=== PATIENT | male | born 1945 | race Caucasian/White ===

== ENCOUNTER 2018-04-01 17:04 | Emergency (ER) | payer OTHER ==
--- OUTSIDE RECORDS SUMMARY | 2018-04-01 17:05 | XMS REPORT | Clinical Summary ---
:1945 Author Organization [facility] Address [address] [place] [address] Care Team Providers Name Role Phone Asked, No Pcp Primary Care Provider Unavailable Allergies No Known Allergies Current Medications Prescription Sig. Disp. Refills Start Date End Date Status zolpidem (AMBIEN) 10 Take 10 mg by Active mg tablet mouth nightly as needed for sleep. aspirin (ECOTRIN) 81 Take 81 mg by Active MG enteric coated mouth daily. tablet atorvastatin Take 40 mg by Active (LIPITOR) 40 MG mouth daily. tablet lisinopril Take 40 mg by Active (PRINIVIL,ZESTRIL) 40 mouth nightly. mg tablet clopidogrel (PLAVIX) Take 1 tablet 90 tablet 3 12/30/2016 12/30/2017 75 mg (75 mg total) by tabletIndications: mouth daily. Right-sided carotid artery disease Active Problems Problem Noted Date Carotid artery stenosis, symptomatic 11/17/2016 Social History Tobacco Use Types Packs/Day Years Used Date Never Assessed Sex Assigned at Date Recorded Not on file Last Filed Vital Signs Not on file Plan of Treatment Health Maintenance Due Date Last Done Comments COLON CANCER SCREENING 1997 SHINGRIX VACCINE (#1) 1997 ZOSTER VACCINE 2007 PNEUMOCOCCAL POLYSACCHARIDE VACCINE AGE 65 AND OVER 2012 PNEUMOCOCCAL-13 2012 INFLUENZA VACCINE 06/16/2018 Implants Implanted Type Area Subway Guard Device Expiration Model / Identifier Date Serial / Lot Patch Biosurg Selnt Fibrin Absrbl 9.5x4.8cm Tachosil - [id number] Surgical N/A : WHITE 02/13/2017 [id number] / Implanted: Qty: 1 on 11/19/2016 by Rashid Fritz MD Implants; N/A BIOSCIENCE / Expanders; Extenders; Surgical Wires Kit Shunt Crtd Artery Rdopq Line 6in Strl Hospers - [id number] Surgical N/A: COVIDIEN BILLIE 06/23/2021 [id number] / Implanted: 11/19/2016 (Quantity not on file) Implants; N/A HEALTHCARE / Expanders; [id number] Extenders; Surgical Wires Patch Vasclr Perph 0.8x8cm Vascu-Guard - [id number] Vascular N/A: WHITE 04/08/2021 [id number] / Implanted: 11/19/2016 (Quantity not on file) Graft N/A BIOSCIENCE / [id number] Results Not on fileafter 03/31/2017 Insurance Payer Benefit Plan / Group Subscriber ID Type Phone Address MEDICARE MEDICARE PART A AND B xxxxxxxxxx Medicare [place], [place] [phone] [place] [id number]
[2018-04-01 17:29] LABS: Absolute Lymphocytes (CBC) 1.9 K/uL (0.7-4.9); Absolute Monocytes 0.6 K/uL (0.1-1.3); Absolute Neutrophil 4.9 K/uL (1.8-8.0); Basophils % 1.3 % (0-1.3); Hematocrit 45.1 % (39.6-49.0); Lymphocytes % 24.3 % (15.3-44.8); MCH 34.7 pg (27.0-35.0); MCV 101.9 fL (80-100); MPV 9.6 fL (7.6-11.3); Monocytes % 7.8 % (3.3-12.3); RBC Red Blood Cell Count 4.42 M/uL (4.33-5.43)
[2018-04-01 17:36] LABS: Potassium 4.2 mEq/L (3.6-5.0)
--- NOTE | 2018-04-01 18:48 | RAD REPORT ---
EXAM DESCRIPTION: CT - Head C Spine Cap W Con - 04/01/2018 6:39 pm COMPARISON: None. TECHNIQUE: Axial [address] head images were obtained. Axial [address] cervical spine images were obtaine d with sagittal and coronal reconstruction images reviewed. During dynamic enhancement of 100mL non-i onic contrast, axial 5 mm images of the chest, abdomen and pelvis were obtained. All CT scans are performed using dose optimization technique as appropriate and may include automated exposure control or mA/KV adjustment according to patient size. FINDINGS: No intracranial hemorrhage, mass or edema. No midline shift or abnormal fluid collection. Mastoid air cells and paranasal sinuses are clear. No skull fracture. Atrophy and chronic ischemic changes are relatively mild. Ventricles are in proportion to any volume loss. CT cervical spine imaging shows normal height. Normal alignment of the vertebrae. Disc space narrowin g and endplate degenerative change C3-4. Bilateral bony foraminal encroachment at this level. No para spinal mass or hematoma seen. Central canal detail is inherently limited. Concerns for traumatic disc herniation or traumatic cord injury can be further addressed with MR imaging. CT chest shows no pneumothorax, pulmonary contusion or pleural fluid collection. No mediastinal hemat ralph and the aorta and pulmonary arteries are unremarkable. No chest will mass or abnormal axillary fi nding. No displaced rib fracture or other significant bony finding. CT abdomen and pelvis show no injury to solid abdominal viscera. Gallbladder and biliary tree are unr emarkable. No bowel injury or significant finding. No free air, free fluid or abnormal stranding. No urinary bladder abnormality. No significant bony finding. IMPRESSION: No hemorrhage, cortical contusion or other acute intracranial finding. Cervical spine degenerative change at C3-4. No acute finding. No pneumothorax, pulmonary contusion or acute CT chest finding. No displaced rib fracture. No significant CT Abdomen and Pelvis finding.
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
== END 2018-04-01 19:25 | disposition home or self-care (01) ==
LOC: ER 17:04
DX: G89.11 Acute pain due to trauma (principal); V49.49XA Driver injured in collision with other motor vehicles in traffic accident, initial encounter; Z79.01 Long term (current) use of anticoagulants; I10 Essential (primary) hypertension; Z86.73 Personal history of transient ischemic attack (TIA), and cerebral infarction without residual deficits
CPT/HCPCS: 36415; 70450; 71260; 72125; 74177; 80048; 85025; 86850; 86900; 86901; 99285; Q9967

== ENCOUNTER 2018-06-25 01:25 | Emergency (ER) | payer OTHER ==
--- OUTSIDE RECORDS SUMMARY | 2018-06-25 01:27 | XMS REPORT | Clinical Summary ---
:1945 Author Organization [facility] Address [address] [place] [address] Care Team Providers Name Role Phone Asked, [...] INFLUENZA VACCINE 06/16/2018 Implants Implanted Type Area Off Premise Service Representative Device Expiration Model / Identifier Date Serial / Lot Patch Biosurg Selnt Fibrin Absrbl 9.5x4.8cm Tachosil - [id number] Surgical N/A : WHITE 02/13/2017 [id number] / Implanted: Qty: 1 on 11/19/2016 by Rashid Fritz MD Implants; N/A BIOSCIENCE / Expanders; Extenders; Surgical Wires Kit Shunt Crtd Artery Rdopq Line 6in Strl [place] - [id number] Surgical N/A: COVIDIEN BILLIE 06/23/2021 [id number] / Implanted: 11/19/2016 (Quantity not on file) Implants; N/A HEALTHCARE / Expanders; [id number] Extenders; Surgical Wires Patch Vasclr Perph 0.8x8cm Vascu-Guard - [id number] Vascular N/A: WHITE 04/08/2021 [id number] / Implanted: 11/19/2016 (Quantity not on file) Graft N/A BIOSCIENCE / [id number] Results Not on fileafter 06/24/2017 Insurance Payer Benefit Plan / Group Subscriber ID Type Phone Address MEDICARE MEDICARE PART A AND B xxxxxxxxxx Medicare [place], [place] ia [facility] [phone] [place] [id number]
[2018-06-25 02:44] LABS: Absolute Lymphocytes (CBC) 1.9 K/uL (0.7-4.9); Absolute Monocytes 0.6 K/uL (0.1-1.3); Absolute Neutrophil 3.9 K/uL (1.8-8.0); Basophils % 0.5 % (0-1.3); Eosinophils % 3.5 % (0-4.4); Hematocrit 44.5 % (39.6-49.0); Lymphocytes % 28.9 % (15.3-44.8); MCH 35.7 pg (27.0-35.0); MPV 9.3 fL (7.6-11.3); Monocytes % 9.4 % (3.3-12.3); RBC Red Blood Cell Count 4.32 M/uL (4.33-5.43)
[2018-06-25 02:46] LABS: Protime INR 1.03
[2018-06-25 02:56] LABS: ALT/SGPT 44 U/L (12-78); AST/SGOT 27 U/L (15-37); Albumin 3.5 g/dL (3.4-5.0); Alkaline Phosphatase 93 U/L (45-117); BUN Blood Urea Nitrogen 18 mg/dL (7-18); Bicarbonate 28 mmol/L (21-32); Bilirubin Direct < 0.1 mg/dL (0-0.2); Bilirubin Total 0.4 mg/dL (0.2-1.0); CKMB Creatine Kinase MB 1.2 ng/mL (0.3-3.6); Creatine Phosphokinase 78 U/L (39-308); Glucose Level 106 mg/dL (74-106); Magnesium 2.6 mg/dL (1.8-2.4); NT PRO-BNP 127 pg/mL (<125); Potassium 4.7 mmol/L (3.5-5.1); Protein, Total 7.8 g/dL (6.4-8.2); Sodium Level 141 mmol/L (136-145)
--- NOTE | 2018-06-25 03:35 | EDPHYS ---
Physician Documentation [facility] Name: Ashok Lopez Age: 72 yrs Sex: Male : 1945 Arrival Date: 06/25/2018 Time: 01:26 Bed 18 Private MD: ED Physician Marbin Hernandez HPI: 06/25 02:11 This 72 yrs old Male presents to ER via Ambulatory with complaints of Chest pkl Pain > 30 y/o, High Blood Pressure. 02:11 The patient or guardian reports chest pain that is located primarily in the substernal pkl area. Onset: yesterday. The pain radiates to the right arm. Associated signs and symptoms: Pertinent positives: shortness of breath. The chest pain is described as a pressure, squeezing. The patient has experienced similar episodes in the past, several times. Historical: - Allergies: 01:51 NKA; jd3 - Home Meds: 01:51 atorvastatin 20 mg Oral tab 1 tab once daily [Active]; Plavix 75 mg Oral tab 1 tab once jd3 daily [Active]; lisinopril 40 mg Oral tab [Active]; aspirin 325 mg Oral tab [Active]; - PMHx: 01:51 Arthritis; CVA; Hypertension; Prostate Cancer; Schizophrenia; jd3 - PSHx: 01:51 Heart stents; Cholecystectomy; right arm sx; abd sx; jd3 - Immunization history:: Adult Immunizations up to date. - Social history:: Smoking status: Patient uses tobacco products, smokes one-half pack cigarettes per day. - Ebola Screening: : Patient negative for fever greater than or equal to 101.5 degrees Fahrenheit, and additional compatible Ebola Virus Disease symptoms. ROS: 02:11 Eyes: Negative for injury, pain, redness, and discharge, ENT: Negative for injury, pkl pain, and discharge, Neck: Negative for injury, pain, and swelling. 02:11 Cardiovascular: Positive for chest pain. 02:11 Respiratory: Positive for shortness of breath. 02:11 Abdomen/GI: Negative for abdominal pain, nausea, vomiting, and diarrhea. 02:11 Back: Negative for acute changes. 02:11 : Negative for urinary symptoms. 02:11 MS/extremity: Negative for acute changes. 02:11 Skin: Negative for rash. 02:11 Neuro: Negative for altered mental status. Exam: 02:11 Head/Face: Normocephalic, atraumatic. Eyes: Pupils equal round and reactive to light, pkl extra-ocular motions intact. Lids and lashes normal. Conjunctiva and sclera are non-icteric and not injected. Cornea within normal limits. Periorbital areas with no swelling, redness, or edema. 02:11 Head/face: Exam is negative for acute changes. 02:11 Eyes: Exam is negative for 02:11 ENT: Exam is negative for acute changes. 02:11 Neck: Exam negative for acute changes. 02:11 Chest/axilla: Exam negative for acute changes. 02:11 Cardiovascular: Rate: bradycardic, actual rate is 47 bpm, Rhythm: regular. 02:11 ECG was reviewed by the Attending Physician. 02:11 Respiratory: Exam negative for acute changes. 02:11 Abdomen/GI: Exam negative for acute changes. 02:11 Back: Exam negative for acute changes. 02:11 : Exam negative for acute changes. 02:11 Musculoskeletal/extremity: Exam is negative for acute changes. 02:11 Skin: Exam negative for rash. 02:11 Neuro: Orientation: is normal, Mentation: is normal, Cranial nerves: grossly normal, Motor: is normal. Vital Signs: 01:51 BP 166 / 67; Pulse 49; Resp 15 S; Temp 98.7(O); Pulse Ox 98% on R/A; Weight 86.18 kg jd3 (R); Height 5 ft. 5 in. (165.10 cm) (R); Pain 4/10; 02:17 BP 158 / 73; Pulse 45; Resp 18 S; Pulse Ox 98% on R/A; Pain 4/10; jd3 03:09 BP 159 / 54; Pulse 50; Resp 20 S; Pulse Ox 95% on R/A; jd3 01:51 Body Mass Index 31.62 (86.18 kg, 165.10 cm) jd3 MDM: 01:28 Patient medically screened. pkl 03:30 Data reviewed: vital signs, nurses notes, lab test result(s), EKG, radiologic studies, pkl plain films. ED course: Patient said he is feeling better. Does not want to be admitted for further evaluations. Signed AMA. . ED course: Patient said he will go to [facility] in the morning for further evaluations. 06/25 01:57 Order name: Basic Metabolic Panel; Complete Time: 02:57 pkl 06/25 01:57 Order name: CBC with Diff; Complete Time: 02:46 pkl 06/25 01:57 Order name: Ckmb; Complete Time: 02:57 pkl 06/25 01:57 Order name: CPK; Complete Time: 02:57 pkl 06/25 01:57 Order name: LFT's; Complete Time: 02:57 pkl 06/25 01:57 Order name: Magnesium; Complete Time: 02:57 pkl 06/25 01:57 Order name: NT PRO-BNP; Complete Time: 02:57 pkl 06/25 01:57 Order name: PT-INR pkl 06/25 01:57 Order name: Ptt, Activated pkl 06/25 01:57 Order name: Troponin (emerg Dept Use Only); Complete Time: 02:55 pkl 06/25 01:57 Order name: XRAY Chest (1 view) pkl 06/25 01:57 Order name: EKG; Complete Time: 01:58 pkl 06/25 01:57 Order name: Cardiac monitoring; Complete Time: 02:12 pkl 06/25 01:57 Order name: D-Dimer pkl 06/25 01:57 Order name: EKG - Nurse/Tech; Complete Time: 02:12 pkl 06/25 01:57 Order name: IV Saline Lock; Complete Time: 02:12 pkl 06/25 01:57 Order name: Labs collected and sent; Complete Time: 02:12 pkl 06/25 01:57 Order name: O2 Per Protocol; Complete Time: 02:12 pkl 06/25 01:57 Order name: O2 Sat Monitoring; Complete Time: 02:12 pkl Administered Medications: No medications were administered Disposition: 06/25/18 03:35 Patient has left against medical advice. - Patients states they are going to Home. - Condition is Stable. Follow up: Private Physician; When: Tomorrow; Reason: Re-evaluation by your physician. - Problem is new. - Symptoms have improved. Signatures: Dispatcher [employer] EDMarbin Aden MD MD pkSolomon Rich RN RN jd3 Corrections: (The following items were deleted from the chart) 03:35 03:35 06/25/2018 03:35 Patients has left against medical advice. Patient states they jd3 are going to Home. Condition is Stable. Follow up: Private Physician; When: Tomorrow; Reason: Re-evaluation by your physician. Problem is new. Symptoms have improved. pkl
--- NOTE | 2018-06-25 03:35 | ER ---
Nurse's Notes [facility] Name: Ashok Lopez Age: 72 yrs Sex: Male : 1945 Arrival Date: 06/25/2018 Time: 01:26 Bed 18 Private MD: Diagnosis: Presentation: 06/25 01:46 Presenting complaint: Patient states: "I have been high blood pressure and chest jd3 pressure on the right side of my chest for the past 2 days. My pressure has gotten up into the 220/95 with the chest pressure and shortness of breath I knew I needed to be seen.". Transition of care: patient was not received from another setting of care. Onset of symptoms was June 22, 2018. Risk Assessment: Do you want to hurt yourself or someone else? Patient reports no desire to harm self or others. Initial Sepsis Screen: Does the patient meet any 2 criteria? No. Patient's initial sepsis screen is negative. Does the patient have a suspected source of infection? No. Patient's initial sepsis screen is negative. Care prior to arrival: None. 01:46 Method Of Arrival: Ambulatory j 01:46 Acuity: BELLA 2 jd3 Historical: - Allergies: 01:51 NKA; jd3 - Home Meds: 01:51 atorvastatin 20 mg Oral tab 1 tab once daily [Active]; Plavix 75 mg Oral tab 1 tab once jd3 daily [Active]; lisinopril 40 mg Oral tab [Active]; aspirin 325 mg Oral tab [Active]; - PMHx: 01:51 Arthritis; CVA; Hypertension; Prostate Cancer; Schizophrenia; jd3 - PSHx: 01:51 Heart stents; Cholecystectomy; right arm sx; abd sx; jd3 - Immunization history:: Adult Immunizations up to date. - Social history:: Smoking status: Patient uses tobacco products, smokes one-half pack cigarettes per day. - Ebola Screening: : Patient negative for fever greater than or equal to 101.5 degrees Fahrenheit, and additional compatible Ebola Virus Disease symptoms. Screenin:54 Abuse screen: Denies threats or abuse. Nutritional screening: No deficits noted. jd3 Tuberculosis screening: No symptoms or risk factors identified. Fall Risk Ambulatory Aid- None/Bed Rest/Nurse Assist (0 pts). Gait- Normal/Bed Rest/Wheelchair (0 pts) Mental Status- Oriented to own ability (0 pts). Total [place] Fall Scale indicates No Risk (0-24 pts). Assessment: 01:52 General: Appears uncomfortable, Behavior is calm, cooperative, appropriate for age. jd3 Pain: Complains of pain in chest Pain radiates to right arm Pain currently is 4 out of 10 on a pain scale. Quality of pain is described as pressure, Pain began 2-3 days ago. Neuro: Level of Consciousness is awake, alert, obeys commands, Oriented to person, place, time, situation, Appropriate for age. Cardiovascular: Heart tones S1 S2 present Capillary refill < 3 seconds Patient's skin is warm and dry. Rhythm is sinus bradycardia. Respiratory: Reports shortness of breath prior to arrival. Airway is patent Respiratory effort is even, unlabored, Respiratory pattern is regular, symmetrical, Breath sounds are clear bilaterally. Denies shortness of breath. GI: Abdomen is round Bowel sounds present X 4 quads. Abd is soft and non tender X 4 quads. Patient currently denies nausea, vomiting. : No signs and/or symptoms were reported regarding the genitourinary system. EENT: No signs and/or symptoms were reported regarding the EENT system. Derm: Skin is intact, Skin is dry, Skin is normal, Skin temperature is warm. Musculoskeletal: Circulation, motion, and sensation intact. Range of motion: intact in all extremities. 02:17 Reassessment: Patient appears in no apparent distress at this time. Patient and/or jd3 family updated on plan of care and expected duration. Pain level reassessed. Patient is alert, oriented x 3, equal unlabored respirations, skin warm/dry/pink. 03:09 Reassessment: Patient appears in no apparent distress at this time. Patient and/or jd3 family updated on plan of care and expected duration. Pain level reassessed. Patient is alert, oriented x 3, equal unlabored respirations, skin warm/dry/pink. 03:33 Reassessment: Patient appears in no apparent distress at this time. Patient and/or jd3 family updated on plan of care and expected duration. Pain level reassessed. Patient is alert, oriented x 3, equal unlabored respirations, skin warm/dry/pink. pt wishing to go AMA, provider discussing plan of care with the pt. pt signed AMA form. Vital Signs: 01:51 BP 166 / 67; Pulse 49; Resp 15 S; Temp 98.7(O); Pulse Ox 98% on R/A; Weight 86.18 kg jd3 (R); Height 5 ft. 5 in. (165.10 cm) (R); Pain 4/10; 02:17 BP 158 / 73; Pulse 45; Resp 18 S; Pulse Ox 98% on R/A; Pain 4/10; jd3 03:09 BP 159 / 54; Pulse 50; Resp 20 S; Pulse Ox 95% on R/A; jd3 01:51 Body Mass Index 31.62 (86.18 kg, 165.10 cm) jd3 ED Course: 01:26 Patient arrived in ED. am2 01:28 Marbin Hernandez MD is Attending Physician. pkmaría 01:29 Solomon De La Garza, RN is Primary Nurse. jd3 01:48 Triage completed. jd3 01:52 Arm band placed on. jd3 01:54 Patient has correct armband on for positive identification. Bed in low position. Call jd3 light in reach. Side rails up X2. Adult w/ patient. classroom monitor on. Pulse ox on. NIBP on. 01:55 Patient maintains SpO2 saturation greater than 95% on room air. jd3 02:17 X-ray completed. Portable x-ray completed in exam room. Patient tolerated procedure kw well. 02:17 XRAY Chest (1 view) In Process Unspecified. EDMS 02:22 Inserted saline lock: 20 gauge in left antecubital area, using aseptic technique. Blood oe collected. 03:34 No provider procedures requiring assistance completed. IV discontinued, intact, jd3 bleeding controlled, No redness/swelling at site. Pressure dressing applied. Administered Medications: No medications were administered Outcome: 03:35 AMA AMA form signed jd3 03:35 Condition: stable 03:35 Instructed on follow up and referral plans. Demonstrated understanding of instructions. 03:35 Patient left the ED. jd3 Signatures: Dispatcher [employer] EDMS Marbin Hernandez MD MD pkMisa Nguyen Orlando oe Moreno, Amanda am2 Solomon De La Garza, RN RN jd3 Corrections: (The following items were deleted from the chart) 02:18 01:52 Respiratory: Airway is patent Respiratory effort is even, unlabored, Respiratory jd3 pattern is regular, symmetrical, Breath sounds are clear bilaterally. jd3
--- NOTE | 2018-06-25 08:18 | EKG ---
Test Date: 2018-06-25 Test Time: 01:39:13 System Analyst: LAURA MEASUREMENT RESULTS: Intervals: Rate: 47 IN: 142 QRSD: 88 QT: 462 QTc: 408 [place]: P: 36 IN: 142 QRS: 3 T: 47 INTERPRETIVE STATEMENTS: Sinus bradycardia Inferior infarct, age undetermined Abnormal ECG Compared to ECG 11/13/2016 07:14:51 No significant changes Electronically Signed On 06-25-18 08:17:47 CDT by Trent Monet
--- NOTE | 2018-06-25 08:20 | RAD REPORT ---
EXAM DESCRIPTION: Murali Single View06/25/2018 2:17 am CLINICAL HISTORY: Chest pain COMPARISON: October 2016 FINDINGS: The lungs appear clear of acute infiltrate. The heart is borderline enlarged IMPRESSION: No acute abnormalities displayed
== END 2018-06-25 03:35 | disposition left against medical advice (07) ==
LOC: ER 01:25
DX: R07.9 Chest pain, unspecified (principal); I10 Essential (primary) hypertension; F17.210 Nicotine dependence, cigarettes, uncomplicated; Z79.01 Long term (current) use of anticoagulants; Z79.82 Long term (current) use of aspirin; Z85.46 Personal history of malignant neoplasm of prostate; Z86.73 Personal history of transient ischemic attack (TIA), and cerebral infarction without residual deficits
CPT/HCPCS: 36415; 71045; 80048; 80076; 82550; 82553; 83735; 83880; 84484; 85025; 85379; 85610; 85730; 93005; 99285

== ENCOUNTER 2018-06-26 16:38 | Emergency (ER) | payer OTHER ==
--- OUTSIDE RECORDS SUMMARY | 2018-06-26 16:41 | XMS REPORT | Clinical Summary ---
:1945 Author Organization [facility] Address [address] [place] [address] Care Team Providers Name Role Phone Asked, [...] INFLUENZA VACCINE 06/16/2018 Implants Implanted Type Area Front Load Trash Truck Driver Device Expiration Model / Identifier Date Serial / Lot Patch Biosurg Selnt Fibrin Absrbl 9.5x4.8cm Tachosil - [id number] Surgical N/A : WHITE 02/13/2017 [id number] / Implanted: Qty: 1 on 11/19/2016 by Rashid Fritz MD Implants; N/A BIOSCIENCE / Expanders; Extenders; Surgical Wires Kit Shunt Crtd Artery Rdopq Line 6in Strl [place] - [id number] Surgical N/A: COVIDIEN BILLIE 06/23/2021 [id number] / Implanted: 11/19/2016 (Quantity not on file) Implants; N/A HEALTHCARE / Expanders; [id number] Extenders; Surgical Wires Patch Vasclr Perph 0.8x8cm Vascu-Guard - [id number] Vascular N/A: WHITE 04/08/2021 [id number] / Implanted: 11/19/2016 (Quantity not on file) Graft N/A BIOSCIENCE / [id number] Results Not on fileafter 06/25/2017 Insurance Payer Benefit Plan / Group Subscriber ID Type Phone Address MEDICARE MEDICARE PART A AND B xxxxxxxxxx Medicare [place], [place] ia [facility] [phone] [place] [id number]
[2018-06-26] MEDS ORDERED: HYDRALAZINE HCL 20 MG/ML VIAL ONE (17:21)
[2018-06-26] MEDS ORDERED: NA CHLORIDE 0.9% 1,000 ML ONE (17:21)
[2018-06-26 17:30] LABS: Absolute Lymphocytes (CBC) 1.4 K/uL (0.7-4.9); Absolute Monocytes 0.3 K/uL (0.1-1.3); Absolute Neutrophil 4.3 K/uL (1.8-8.0); Basophils % 0.5 % (0-1.3); Eosinophils % 2.3 % (0-4.4); Hematocrit 44.2 % (39.6-49.0); Lymphocytes % 23.1 % (15.3-44.8); MCH 36.1 pg (27.0-35.0); MCV 104.3 fL (80-100); MPV 9.2 fL (7.6-11.3); Monocytes % 5.2 % (3.3-12.3); RBC Red Blood Cell Count 4.24 M/uL (4.33-5.43)
[2018-06-26 17:31] LABS: Protime INR 1.08
[2018-06-26 17:41] LABS: ALT/SGPT 43 U/L (12-78); AST/SGOT 29 U/L (15-37); Albumin 3.4 g/dL (3.4-5.0); Alkaline Phosphatase 83 U/L (45-117); BUN Blood Urea Nitrogen 17 mg/dL (7-18); Bicarbonate 25 mmol/L (21-32); Bilirubin Direct < 0.1 mg/dL (0-0.2); Bilirubin Total 0.6 mg/dL (0.2-1.0); CKMB Creatine Kinase MB 1.2 ng/mL (0.3-3.6); Creatine Phosphokinase 84 U/L (39-308); Glucose Level 146 mg/dL (74-106); Magnesium 2.3 mg/dL (1.8-2.4); NT PRO-BNP 292 pg/mL (<125); Potassium 3.9 mmol/L (3.5-5.1); Protein, Total 7.9 g/dL (6.4-8.2); Sodium Level 141 mmol/L (136-145)
[2018-06-26] MEDS ORDERED: MORPHINE 4 MG/ML SYR ONE (17:51)
--- NOTE | 2018-06-26 18:03 | RAD REPORT ---
EXAM DESCRIPTION: CT - Head Brain Wo Cont - 06/26/2018 5:30 pm CLINICAL HISTORY: hypertension;Headache COMPARISON: Head Brain Wo Cont dated 11/12/2016 TECHNIQUE: All CT scans are performed using dose optimization technique as appropriate and may inclu de automated exposure control or mA/KV adjustment according to patient size. FINDINGS: No intracranial hemorrhage, hydrocephalus or extra-axial fluid collection.No areas of brai n edema or evidence of midline shift. The paranasal sinuses and mastoids are clear. The calvarium is intact. IMPRESSION: No acute intracranial abnormality.
--- NOTE | 2018-06-26 18:04 | RAD REPORT ---
EXAM DESCRIPTION: RAD - Chest Single View - 06/26/2018 5:41 pm CLINICAL HISTORY: CHEST PAIN Chest pain. COMPARISON: Chest Single View dated 06/25/2018; Chest Single View dated 11/13/2016; Chest Single View dated 11/12/2016; CHEST SINGLE VIEW dated 08/24/2011 FINDINGS: Portable technique limits examination quality. The lungs are grossly clear. The heart is normal in size. No displaced fractures. IMPRESSION: No acute intrathoracic process suspected.
[2018-06-26] MEDS ORDERED: ENOXAPARIN 100 MG/ML SYR SQ ONE (18:12)
[2018-06-26] MEDS ORDERED: CLOPIDOGREL 75 MG TABLET ONE (18:12)
[2018-06-26] MEDS ORDERED: NITROGLYCERIN/D5W 50 MG/250 ML BTL IV ONE (18:12)
--- NOTE | 2018-06-26 18:21 | ER ---
Nurse's Notes [facility] Name: Ashok Lopez Age: 72 yrs Sex: Male : 1945 Arrival Date: 06/26/2018 Time: 16:55 Bed 2 Private MD: None, None Diagnosis: Non-ST elevation (NSTEMI) myocardial infarction;Hypertensive heart disease;Unstable angina Presentation: 06/26 16:56 Presenting complaint: EMS states: pt c/o mid sternal chest pain and weakness that has sg been going on now for several days, reports feeling dizzy today. EMS reports that pt BP was 240/100's upon arrival at scene, administered 2 nitro SL pressure decreased to 140's/80's, reported the s/s were decreased and the pain resolved. Transition of care: patient was not received from another setting of care. Onset of symptoms was June 26, 2018. Risk Assessment: Do you want to hurt yourself or someone else? Patient reports no desire to harm self or others. Initial Sepsis Screen: Does the patient meet any 2 criteria? No. Patient's initial sepsis screen is negative. Does the patient have a suspected source of infection? No. Patient's initial sepsis screen is negative. Care prior to arrival: Medication(s) given: ASA, 81 mg, x 4, Nitroglycerin, 0.4 mg SL x 2. 16:56 Method Of Arrival: EMS: [facility] 16:56 Acuity: BELLA 3 sg Historical: - Allergies: 17:02 NKA; sg - Home Meds: 17:02 aspirin 325 mg Oral tab [Active]; atorvastatin 20 mg Oral tab 1 tab once daily sg [Active]; lisinopril 40 mg Oral tab [Active]; meloxicam 7.5 mg Oral tab 1 tab once daily [Active]; olanzapine 15 mg Oral tab 1 tab once daily [Active]; omeprazole 20 mg Oral cpDR 1 cap once daily [Active]; Plavix 75 mg Oral tab 1 tab once daily [Active]; zolpidem 10 mg Oral tab 1 tab once daily [Active]; - PMHx: 17:02 Arthritis; CVA; Hypertension; Prostate Cancer; Schizophrenia; sg - PSHx: 17:02 Heart stents; Cholecystectomy; right arm sx; abd sx; sg - Immunization history:: Adult Immunizations up to date. - Social history:: Smoking status: Patient/guardian denies using tobacco. - Ebola Screening: : Patient negative for fever greater than or equal to 101.5 degrees Fahrenheit, and additional compatible Ebola Virus Disease symptoms Patient denies exposure to infectious person Patient denies travel to an Ebola-affected area in the 21 days before illness onset No symptoms or risks identified at this time. Screenin:00 Abuse screen: Denies threats or abuse. Denies injuries from another. Nutritional sg screening: No deficits noted. Tuberculosis screening: No symptoms or risk factors identified. Never had TB. Fall Risk None identified. Assessment: 17:15 General: Appears in no apparent distress. comfortable, well groomed, well developed, sg well nourished, Behavior is calm, cooperative, appropriate for age. Pain: Complains of pain in chest Pain does not radiate. Neuro: Reports dizziness. Cardiovascular: Heart tones S1 S2 present Capillary refill is brisk in bilateral fingers Chest pain is described as mild, quality is sharp. Respiratory: Airway is patent Respiratory effort is even, unlabored, Respiratory pattern is regular, symmetrical. GI: Abdomen is round non-distended, Reports normal bowel habits, tolerance of fluids, tolerance of food. : No signs and/or symptoms were reported regarding the genitourinary system. EENT: No signs and/or symptoms were reported regarding the EENT system. Derm: Skin is intact, is healthy with good turgor, Skin is dry, Skin is pale, Skin temperature is warm. Musculoskeletal: No signs and/or symptoms reported regarding the musculoskeletal system. 17:52 Reassessment: pt reports increase in CP, now an 08/25, Troy CORDERO notified, Dr.Nieto erwin notified of pt condition and VS, orders received for repeat EKG and 2 mg Morphine IVP. pt remains at bedside, a repeat EKG in progress. 18:02 Reassessment: pt at nurses station, reports " his pain still isnt any better. I sg just dont know what to do." Troy CORDERO notified, no new orders received at this time. 18:51 Reassessment: Patient appears in no apparent distress at this time. Patient and/or sg family updated on plan of care and expected duration. Pain level reassessed. Patient is alert, oriented x 3, equal unlabored respirations, skin warm/dry/pink. reports pain continues /10, adjusted Nitro Drip rate per Troy PA order, pt family remains at bedside at this time, awaiting approval from receiving facility Patient states symptoms have not improved. 19:15 Reassessment: Patient is alert, oriented x 3, equal unlabored respirations, skin lp1 warm/dry/pink. Pain: Complains of pain in chest Pain currently is 5 out of 10 on a pain scale. Pain began gradually. 20:00 Reassessment: report called to ARTURO Dominguez at [facility] for patient going to [facility]; lp1 States she will have to confirm transfer with physician. 20:18 Reassessment: Dr. Beckman ordered to discontinue nitro drip and to administer 1.5 inch of tl2 nitro paste on chest wall. Dr. Beckman is speaking with accepting physician at [facility]. 21:31 Reassessment: Patient and/or family updated on plan of care and expected duration. Pain lp1 level reassessed. Patient is alert, oriented x 3, equal unlabored respirations, skin warm/dry/pink. Patient states feeling better. Patient states symptoms have improved. 22:30 Reassessment: Patient appears in no apparent distress at this time. No changes from lp1 previously documented assessment. Patient and/or family updated on plan of care and expected duration. Pain level reassessed. 23:25 Reassessment: Report given to ARTURO Larose at [facility] for patient going to [facility]. lp1 Vital Signs: 16:59 BP 195 / 86; Pulse 71 MON; Resp 16 S; Temp 97.7(TE); Pulse Ox 98% on R/A; Pain 4/10; sg 17:25 BP 168 / 66; Pulse 72; Resp 17 S; Pulse Ox 99% on R/A; sg 17:40 BP 192 / 76; Pulse 63; Resp 17 S; Pulse Ox 96% on R/A; sg 18:00 BP 200 / 77; Pulse 69 MON; Resp 17 S; Pulse Ox 99% on R/A; sg 18:22 BP 193 / 81; Pulse 70; Resp 12; Pulse Ox 99% on R/A; Pain 10/10; sg 18:24 Weight 92.99 kg; sg 18:34 BP 187 / 73; Pulse 71; Resp 17 S; Pulse Ox 99% on R/A; sg 18:43 BP 192 / 80; Pulse 63; Resp 15; Pulse Ox 99% ; sv 18:45 BP 172 / 82; Pulse 69; Resp 14; Pulse Ox 99% on 2 lpm NC; sv 18:54 BP 169 / 105; Pulse 70; Resp 16 S; Pulse Ox 99% on 2 lpm NC; Pain 10/10; sg 19:15 BP 144 / 66; Pulse 70; Resp 16; Pulse Ox 98% on R/A; lp1 19:30 BP 110 / 61; Pulse 60; Resp 16; Pulse Ox 98% on R/A; lp1 19:40 BP 134 / 60; Pulse 56; Resp 12; Pulse Ox 98% on R/A; Pain 4/10; lp1 19:53 BP 142 / 60; Pulse 62; Resp 20; Pulse Ox 96% on R/A; tl2 20:00 BP 134 / 61; Pulse 55; Resp 13; Pulse Ox 96% on 2 lpm NC; lp1 20:10 BP 141 / 65; Pulse 51; Resp 14; Pulse Ox 96% on 2 lpm NC; lp1 20:20 BP 154 / 64; Pulse 47; Resp 13; Pulse Ox 98% on 2 lpm NC; lp1 21:00 BP 145 / 58; Pulse 47; Resp 19; Pulse Ox 99% on 2 lpm NC; lp1 21:20 BP 145 / 76; Pulse 46; Resp 13; Pulse Ox 99% on 2 lpm NC; lp1 21:40 BP 131 / 68; Pulse 46; Resp 14; Pulse Ox 99% on 2 lpm NC; lp1 22:00 BP 133 / 85; Pulse 50; Resp 15; Pulse Ox 99% on 2 lpm NC; lp1 22:40 BP 134 / 64; Pulse 52; Resp 17; Pulse Ox 97% on 2 lpm NC; lp1 23:20 BP 131 / 56; Pulse 48; Resp 18; Pulse Ox 97% on 2 lpm NC; lp1 ED Course: 16:55 Patient arrived in ED. sg 16:56 None, None is Private Physician. sg 16:56 Favian Yanes PA is PHCP. cp 16:56 Austen Diego MD is Attending Physician. cp 16:56 Arm band placed on. sg 16:59 Triage completed. sg 17:00 Patient has correct armband on for positive identification. Placed in gown. Bed in low sv position. Side rails up X2. Adult w/ patient. media monitor on. Pulse ox on. NIBP on. 17:03 Initial lab(s) drawn, by me, held in ED. Inserted saline lock: 20 gauge in left sg antecubital area, using aseptic technique. Blood collected. Patient maintains SpO2 saturation greater than 95% on room air. 17:04 Monty Almeida, RN is Primary Nurse. sg 17:10 EKG done, by ED staff, reviewed by Favian CORDERO. em1 17:[address] via stretcher. sg 17:28 CT completed. Patient moved to radiology Patient moved back from CT. cw1 17:31 CT Head Brain wo Cont In Process Unspecified. EDMS 17:41 XRAY Chest (1 view) In Process Unspecified. EDMS 18:14 initiated a transfer with Betsy at the [facility] transfer [place]. eb 18:15 Inserted saline lock: 20 gauge in right forearm, using aseptic technique. Flushed right sv forearm with 5 ml normal saline. 18:37 connected the machine preservative filler with Dr. Diego for patient transfer consulation. eb 19:26 Marleny Correa, ARTURO is Primary Nurse. lp1 20:09 No provider procedures requiring assistance completed. lp1 23:46 Patient transferred, IV remains in place. tl2 Administered Medications: 17:20 Drug: hydrALAZINE 10 mg Route: IV; Rate: calculated rate; Site: left antecubital; sg 17:40 Follow up: Response: No adverse reaction; No change in condition; IV Status: Completed sg infusion 17:51 Drug: NS 0.9% 1000 ml Route: IV; Rate: 75 ml/hr; Site: left antecubital; sg 23:55 Follow up: IV Status: Infusion continued upon transfer lp1 17:51 Drug: NS 0.9% 250 ml Route: IV; Rate: bolus; Site: left antecubital; sg 17:52 Drug: morphine 2 mg Route: IVP; Site: left antecubital; sg 18:02 Follow up: Response: No adverse reaction; Pain is unchanged, physician notified sg 18:24 Drug: Lovenox 1 mg/kg Route: Sub-Q; Site: left lower abdomen; sg 18:32 Follow up: Response: No adverse reaction sg 18:24 Drug: PlaVIX 300 mg Route: PO; sg 18:32 Follow up: Response: No adverse reaction sg 18:24 Not Given (medication administered prior to arrival by EMS): Aspirin Chewable Tablet sg 324 mg PO once; 81 mg tablets x 4 18:25 Drug: Nitro Drip - (Nitroglycerin 50 mg, D5W 250 ml) Route: IV; Rate: 2 mcg/min; Site: sg right antecubital; 18:49 Follow up: Rate change 6 mcg/min sg 19:01 Follow up: Rate change 8 mcg/min sg 19:43 Follow up: Rate change 5 mcg/min tl2 19:50 Follow up: Rate change 6 mcg/min lp1 20:22 Follow up: IV Status: IV converted to saline lock lp1 19:43 Drug: fentaNYL (PF) 25 mcg Route: IVP; Site: left antecubital; tl2 20:22 Follow up: Response: Pain is decreased lp1 20:24 Drug: Nitro-Bid Ointment 2 % 1.5 inches Route: Transdermal; Site: anterior chest wall; lp1 Outcome: 18:20 ER care complete, transfer ordered by . cp 20:09 Condition: stable lp1 20:09 Instructed on the need for transfer. 23:46 Transferred by ground EMS Transfer form completed. tl2 23:55 Transferred by ground EMS to [facility], Transfer form completed. X-rays lp1 sent w/ patient. Note: By EMS 23:56 Patient left the ED. lp1 Signatures: Dispatcher [employer] EDFozia Davis RN RN sv Gay, Steven, RN RN sg Kanu Farmer em1 Mariann Burnett 1 Marleny Correa RN RN lp1 Favian Ynaes PA PA cp Knox, Taylor, RN RN tl2 Laura Beckford Corrections: (The following items were deleted from the chart) 17:58 16:56 Care prior to arrival: None. sg sg
--- NOTE | 2018-06-26 18:21 | EDPHYS ---
Physician Documentation [facility] Name: Ashok Lopez Age: 72 yrs Sex: Male : 1945 Arrival Date: 06/26/2018 Time: 16:55 Bed 2 Private MD: None, None ED Physician Austen Diego HPI: 06/26 17:12 This 72 yrs old Male presents to ER via EMS with complaints of Chest Pain. cp 17:12 The patient or guardian reports chest pain that is located primarily in the anterior cp chest wall, left. 17:12 Onset: 3 day(s) ago, and became worse today. The chest pain is described as aching, cp similar to pain with previous AL. Duration: The patient or guardian reports multiple episodes, that wax and wane. Modifying factors: the symptoms are aggravated by activity. Historical: - Allergies: 17:02 NKA; sg - Home Meds: 17:02 aspirin 325 mg Oral tab [Active]; atorvastatin 20 mg Oral tab 1 tab once daily sg [Active]; lisinopril 40 mg Oral tab [Active]; meloxicam 7.5 mg Oral tab 1 tab once daily [Active]; olanzapine 15 mg Oral tab 1 tab once daily [Active]; omeprazole 20 mg Oral cpDR 1 cap once daily [Active]; Plavix 75 mg Oral tab 1 tab once daily [Active]; zolpidem 10 mg Oral tab 1 tab once daily [Active]; - PMHx: 17:02 Arthritis; CVA; Hypertension; Prostate Cancer; Schizophrenia; sg - PSHx: 17:02 Heart stents; Cholecystectomy; right arm sx; abd sx; sg - Immunization history:: Adult Immunizations up to date. - Social history:: Smoking status: Patient/guardian denies using tobacco. - Ebola Screening: : Patient negative for fever greater than or equal to 101.5 degrees Fahrenheit, and additional compatible Ebola Virus Disease symptoms Patient denies exposure to infectious person Patient denies travel to an Ebola-affected area in the 21 days before illness onset No symptoms or risks identified at this time. ROS: 17:15 Eyes: Negative for injury, pain, redness, and discharge. cp 17:15 Constitutional: Negative for body aches, chills, fever, poor PO intake. 17:15 ENT: Negative for drainage from ear(s), ear pain, sore throat, difficulty swallowing, difficulty handling secretions. 17:15 Neck: Negative for pain with movement, pain at rest, stiffness, tenderness. 17:15 Cardiovascular: Positive for chest pain, Negative for edema, palpitations. 17:15 Respiratory: Negative for cough, shortness of breath, wheezing. 17:15 Abdomen/GI: Negative for abdominal pain, nausea, vomiting, and diarrhea, black/tarry stool, rectal bleeding. 17:15 Back: Negative for pain at rest, pain with movement, radiated pain. 17:15 Skin: Negative for cellulitis, rash. 17:15 Neuro: Positive for headache, general weakness, Negative for altered mental status, syncope, near syncope. 17:15 All other systems are negative. Exam: 17:15 ECG was reviewed by the Attending Physician. cp 17:18 Constitutional: The patient appears in no acute distress, alert, awake, cp non-diaphoretic, non-toxic, well developed, well nourished. 17:18 Head/Face: Normocephalic, atraumatic. cp 17:18 Eyes: Periorbital structures: appear normal, Conjunctiva: normal, no exudate, no injection, Sclera: no appreciated abnormality, Lids and lashes: appear normal, bilaterally. 17:18 ENT: External ear(s): are unremarkable, Nose: is normal, Mouth: is normal, Posterior pharynx: is normal, airway is patent, no erythema, no exudate. 17:18 Neck: ROM/movement: is normal, is supple, without pain, no range of motions limitations, no nuchal rigidity. 17:18 Chest/axilla: Inspection: normal, Palpation: is normal, no crepitus, no tenderness. 17:18 Cardiovascular: Rate: normal, Rhythm: regular, Pulses: Pulses are 2+ in right radial artery and left radial artery. Edema: is not appreciated, JVD: is not appreciated. 17:18 Respiratory: the patient does not display signs of respiratory distress, Respirations: normal, no use of accessory muscles, no retractions, no splinting, no tachypnea, labored breathing, is not present, Breath sounds: are clear throughout, no decreased breath sounds, no stridor, no wheezing. 17:18 Abdomen/GI: Inspection: obese Bowel sounds: active, all quadrants, Palpation: abdomen is soft and non-tender, in all quadrants, rebound tenderness, is not appreciated, voluntary guarding, is not appreciated, involuntary guarding, is not appreciated. 17:18 Back: pain, is absent, ROM is normal. 17:18 Skin: cellulitis, is not appreciated, no rash present. 17:18 Neuro: Orientation: to person, place \T\ time. Mentation: lucid, able to follow commands, Cerebellar function: is grossly normal, Motor: moves all fours, strength is normal, Sensation: no obvious gross deficits. 17:56 ECG was reviewed by the Attending Physician. cp Vital Signs: 16:59 BP 195 / 86; Pulse 71 MON; Resp 16 S; Temp 97.7(TE); Pulse Ox 98% on R/A; Pain 4/10; sg 17:25 BP 168 / 66; Pulse 72; Resp 17 S; Pulse Ox 99% on R/A; sg 17:40 BP 192 / 76; Pulse 63; Resp 17 S; Pulse Ox 96% on R/A; sg 18:00 BP 200 / 77; Pulse 69 MON; Resp 17 S; Pulse Ox 99% on R/A; sg 18:22 BP 193 / 81; Pulse 70; Resp 12; Pulse Ox 99% on R/A; Pain 10/10; sg 18:24 Weight 92.99 kg; sg 18:34 BP 187 / 73; Pulse 71; Resp 17 S; Pulse Ox 99% on R/A; sg 18:43 BP 192 / 80; Pulse 63; Resp 15; Pulse Ox 99% ; sv 18:45 BP 172 / 82; Pulse 69; Resp 14; Pulse Ox 99% on 2 lpm NC; sv 18:54 BP 169 / 105; Pulse 70; Resp 16 S; Pulse Ox 99% on 2 lpm NC; Pain 10/10; sg 19:15 BP 144 / 66; Pulse 70; Resp 16; Pulse Ox 98% on R/A; lp1 19:30 BP 110 / 61; Pulse 60; Resp 16; Pulse Ox 98% on R/A; lp1 19:40 BP 134 / 60; Pulse 56; Resp 12; Pulse Ox 98% on R/A; Pain 4/10; lp1 19:53 BP 142 / 60; Pulse 62; Resp 20; Pulse Ox 96% on R/A; tl2 20:00 BP 134 / 61; Pulse 55; Resp 13; Pulse Ox 96% on 2 lpm NC; lp1 20:10 BP 141 / 65; Pulse 51; Resp 14; Pulse Ox 96% on 2 lpm NC; lp1 20:20 BP 154 / 64; Pulse 47; Resp 13; Pulse Ox 98% on 2 lpm NC; lp1 21:00 BP 145 / 58; Pulse 47; Resp 19; Pulse Ox 99% on 2 lpm NC; lp1 21:20 BP 145 / 76; Pulse 46; Resp 13; Pulse Ox 99% on 2 lpm NC; lp1 21:40 BP 131 / 68; Pulse 46; Resp 14; Pulse Ox 99% on 2 lpm NC; lp1 22:00 BP 133 / 85; Pulse 50; Resp 15; Pulse Ox 99% on 2 lpm NC; lp1 22:40 BP 134 / 64; Pulse 52; Resp 17; Pulse Ox 97% on 2 lpm NC; lp1 23:20 BP 131 / 56; Pulse 48; Resp 18; Pulse Ox 97% on 2 lpm NC; lp1 MDM: 17:06 Patient medically screened. cp 18:35 The patient was given aspirin in the Emergency Department. cp 18:35 Data reviewed: vital signs, nurses notes, lab test result(s), EKG, radiologic studies, cp CT scan, plain films. Test interpretation: by ED physician or midlevel provider: ECG, plain radiologic studies. 18:39 ED course: Pt accepted for transfer to [facility], for Unstable angina/NSTEMI. Spoke rn with cardiology, waiting on hospitalist call back.. 20:56 ED course: VSS. Patient reports he is chest pain free. Blood pressure measured at cp 145/67.. 06/26 17:06 Order name: Basic Metabolic Panel; Complete Time: 17:45 cp 06/26 18:28 Interpretation: Normal except: CL 108; GLUC 146; GFR 55. cp 06/26 17:06 Order name: CBC with Diff; Complete Time: 17:45 cp 06/26 18:28 Interpretation: Normal except: RBC 4.24; MCV 104.3; MCH 36.1. cp 06/26 17:06 Order name: Ckmb; Complete Time: 17:45 cp 06/26 17:06 Order name: CPK; Complete Time: 17:45 cp 06/26 17:06 Order name: LFT's; Complete Time: 17:45 08/11 18:28 Interpretation: Normal except: GLOB 4.5; A/G 0.8. 08/11 17:06 Order name: Magnesium; Complete Time: 17:45 08/11 18:30 Interpretation: MG 2.3; Reviewed. 08 17:06 Order name: NT PRO-BNP; Complete Time: 17:45 0811 18:28 Interpretation: Abnormal: NT PRO-BNP 292. 08/ 17:06 Order name: PT-INR; Complete Time: 17:45 cp 08/11 18:29 Interpretation: Abnormal: PT 12.8; Reviewed. 06/26 17:06 Order name: Ptt, Activated; Complete Time: 17:45 cp 08/ 17:06 Order name: Troponin (emerg Dept Use Only); Complete Time: 17:45 11 17:46 Interpretation: Abnormal: TROPED 0.12. 08/11 17:06 Order name: XRAY Chest (1 view); Complete Time: 18:04 0811 17:09 Order name: CT Head Brain wo Cont; Complete Time: 18:04 0811 18:47 Order name: Urine Dipstick--Ancillary (enter results); Complete Time: 20:41 06/26 20:44 Order name: Troponin (emerg Dept Use Only); Complete Time: 22:47 06/26 17:06 Order name: EKG; Complete Time: 17:07 0811 17:06 Order name: Cardiac monitoring; Complete Time: 17:07 11 17:06 Order name: EKG - Nurse/Tech; Complete Time: 17:07 0811 17:06 Order name: IV Saline Lock; Complete Time: 17:07 0811 17:06 Order name: Labs collected and sent; Complete Time: 17:07 06/26 22:52 Order name: EKG; Complete Time: 22:52 06/26 17:06 Order name: O2 Per Protocol; Complete Time: 17:08 08/11 17:06 Order name: O2 Sat Monitoring; Complete Time: 17:07 06/26 17:06 Order name: Urine Dipstick-Ancillary (obtain specimen); Complete Time: 21:08 08/11 18:06 Order name: Misc. Order: bed rest; Complete Time: 18:25 cp 08 22:52 Order name: EKG - Nurse/Tech; Complete Time: 23:11 EC:15 Rate is 48 beats/min. Rhythm is regular. MS interval is normal. QRS interval is normal. cp QT interval is normal. T waves are Inverted in lead V6. Interpreted by me. Reviewed by me. 17:56 Rate is 65 beats/min. Rhythm is regular. MS interval is normal. QRS interval is normal. cp QT interval is normal. T waves are Inverted in lead aVL. Interpreted by me. Reviewed by me. Administered Medications: 17:20 Drug: hydrALAZINE 10 mg Route: IV; Rate: calculated rate; Site: left antecubital; sg 17:40 Follow up: Response: No adverse reaction; No change in condition; IV Status: Completed sg infusion 17:51 Drug: NS 0.9% 1000 ml Route: IV; Rate: 75 ml/hr; Site: left antecubital; sg 23:55 Follow up: IV Status: Infusion continued upon transfer lp1 17:51 Drug: NS 0.9% 250 ml Route: IV; Rate: bolus; Site: left antecubital; sg 17:52 Drug: morphine 2 mg Route: IVP; Site: left antecubital; sg 18:02 Follow up: Response: No adverse reaction; Pain is unchanged, physician notified sg 18:24 Drug: Lovenox 1 mg/kg Route: Sub-Q; Site: left lower abdomen; sg 18:32 Follow up: Response: No adverse reaction sg 18:24 Drug: PlaVIX 300 mg Route: PO; sg 18:32 Follow up: Response: No adverse reaction sg 18:24 Not Given (medication administered prior to arrival by EMS): Aspirin Chewable Tablet sg 324 mg PO once; 81 mg tablets x 4 18:25 Drug: Nitro Drip - (Nitroglycerin 50 mg, D5W 250 ml) Route: IV; Rate: 2 mcg/min; Site: sg right antecubital; 18:49 Follow up: Rate change 6 mcg/min sg 19:01 Follow up: Rate change 8 mcg/min sg 19:43 Follow up: Rate change 5 mcg/min tl2 19:50 Follow up: Rate change 6 mcg/min lp1 20:22 Follow up: IV Status: IV converted to saline lock lp1 19:43 Drug: fentaNYL (PF) 25 mcg Route: IVP; Site: left antecubital; tl2 20:22 Follow up: Response: Pain is decreased lp1 20:24 Drug: Nitro-Bid Ointment 2 % 1.5 inches Route: Transdermal; Site: anterior chest wall; lp1 Disposition: 06/27 07:14 Co-signature as Attending Physician, Austen Diego MD. rn Disposition: 06/26/18 18:20 Transfer ordered to [facility]. Diagnosis are Non-ST elevation (NSTEMI) myocardial infarction, Hypertensive heart disease, Unstable angina. - Reason for transfer: Higher level of care. - Accepting physician is DR. Epstein. - Condition is Stable. - Problem is new. - Symptoms have improved. Signatures: Dispatcher [employer] EDMS Monty Almeida RN RN sg Austen Diego MD MD rn Pena, Laura, RN RN lp1 Favian Yanes PA PA cp Knox, Taylor, RN RN tl2 Carlos Alberto Beckman MD MD gs Corrections: (The following items were deleted from the chart) 06/26 18:54 18:20 06/26/2018 18:20 Transfer ordered to [facility]. Diagnosis is rn Non-ST elevation (NSTEMI) myocardial infarction; Hypertensive heart disease. Reason for transfer: Higher level of care. Accepting physician is . Condition is Stable. Problem is new. Symptoms have improved. cp 21:23 18:54 06/26/2018 18:20 Transfer ordered to [facility]. Diagnosis is cp Non-ST elevation (NSTEMI) myocardial infarction; Hypertensive heart disease. Reason for transfer: Higher level of care. Accepting physician is DR. Epstein. Condition is Stable. Problem is new. Symptoms have improved. rn 23:56 21:23 06/26/2018 18:20 Transfer ordered to [facility]. Diagnosis is lp1 Non-ST elevation (NSTEMI) myocardial infarction; Hypertensive heart disease; Unstable angina. Reason for transfer: Higher level of care. Accepting physician is DR. Epstein. Condition is Stable. Problem is new. Symptoms have improved. cp
[2018-06-26 18:53] LABS: Urine Blood NEGATIVE (NEG); Urine Glucose NEGATIVE (NEG); Urine Protein NEGATIVE (NEG)
[2018-06-26] MEDS ORDERED: FENTANYL CITR 100 MCG/2 ML ONE (19:45)
[2018-06-26] MEDS ORDERED: NITROGLYCERIN 1 GM PKT TD ONE (20:19)
--- NOTE | 2018-06-26 22:00 | EKG ---
Test Date: 2018-06-26 Test Time: 17:06:57 Social Services Assistant: LOPEZ MEASUREMENT RESULTS: Intervals: Rate: 48 KS: 164 QRSD: 86 QT: 442 QTc: 394 [place]: P: 53 KS: 164 QRS: 26 T: -13 INTERPRETIVE STATEMENTS: Sinus bradycardia Inferior infarct, age undetermined Abnormal ECG Compared to ECG 06/25/2018 01:39:13 No significant changes Electronically Signed On 06-26-18 21:59:18 CDT by Trent Monet
--- NOTE | 2018-06-27 06:10 | EKG ---
Test Date: 2018-06-26 Test Time: 17:51:36 Director Government: HB MEASUREMENT RESULTS: Intervals: Rate: 65 SC: 160 QRSD: 86 QT: 426 QTc: 443 [place]: P: 51 SC: 160 QRS: -2 T: 88 INTERPRETIVE STATEMENTS: Sinus rhythm with occasional premature ventricular complexes Inferior infarct, age undetermined Abnormal ECG Compared to ECG 06/26/2018 17:06:57 Ventricular premature complex(es) now present Sinus bradycardia no longer present Myocardial infarct finding still present Electronically Signed On 06-27-18 06:09:31 CDT by Trent Monet
--- NOTE | 2018-06-27 11:43 | EKG ---
Test Date: 2018-06-26 Test Time: 22:59:14 Section Leader And Machine Setter: PORSHA MEASUREMENT RESULTS: Intervals: Rate: 51 [place]: 164 QRSD: 82 QT: 448 QTc: 412 [place]: P: 64 [place]: 164 QRS: 26 T: 44 INTERPRETIVE STATEMENTS: Sinus bradycardia Nonspecific T wave abnormality Abnormal ECG Compared to ECG 06/26/2018 17:51:36 T-wave abnormality now present Sinus rhythm no longer present Ventricular premature complex(es) no longer present Myocardial infarct finding no longer present Electronically Signed On 06-27-18 11:43:01 CDT by Trent Monet
== END 2018-06-26 23:56 | disposition short-term general hospital (02) ==
LOC: ER 16:38
DX: I21.4 Non-ST elevation (NSTEMI) myocardial infarction (principal); I11.9 Hypertensive heart disease without heart failure; I20.0 Unstable angina; Z86.73 Personal history of transient ischemic attack (TIA), and cerebral infarction without residual deficits
CPT/HCPCS: 36415; 70450; 71045; 80048; 80076; 81003; 82550; 82553; 83735; 83880; 84484 ×2; 85025; 85610; 85730; 93005 ×3; J0360; J1650; J3010; J7030; 96361; 96365; 96366; 96367; 96372; 99285

== ENCOUNTER 2020-04-16 16:22 | Emergency (ER) | payer OTHER ==
[2020-04-16] MEDS ORDERED: TETANUS & DIPHTHERIA TOX,ADULT 0.5 ML VIAL ONE (18:25)
[2020-04-16] MEDS ORDERED: LIDOCAINE 1% 20 ML MDV ONE (18:25)
--- OUTSIDE RECORDS SUMMARY | 2020-04-16 18:59 | XMS REPORT | Clinical Summary ---
:1945 Author Organization [facility] Address [address] [place] [address] Care Team Providers Name Role Phone Asked, Pcp Primary Care Provider Unavailable Allergies No Known Allergies Medications Medication Sig Dispensed Refills Start Date End Date Status lisinopril Take 40 mg by 0 Activ e (PRINIVIL,ZESTRIL) 40 mouth nightly. mg tablet clopidogrel (PLAVIX) 75 Take 75 mg by 0 Active mg tablet mouth daily. Active Problems Problem Noted Date NSTEMI (non-ST elevated myocardial infarction) 018 Coronary artery disease involving [place] coronary angie ry with unstable 06/27/2018 angina pectoris Hypertension 06/27/2018 Mixed hyperlipidemia 06/27/2018 Class 2 obesity in adult 06/27/2018 Carotid artery stenosis, symptomatic 11/17/2016 Family History Medical History Relation Name Comments Dementia Brother No Known Problems Father at 96 Dementia Mother No Known Problems Paternal Grandfather in 9 0s No Known Problems Paternal Grandmother in 9 0s Relation Name Status Comments Brother Father Mother Paternal Grandfather Paternal Grandmother Social History Tobacco Use Types Packs/Day Years Used Date Current Every Day Smoker 0.5 10 Smokeless Tobacco: Current User Tobacco Cessation: Ready to Quit: No Alcohol Use Drinks/Week oz/Week Comments No Sex Assigned at Date Recorded Not on file Job Start Date Occupation Industry Not on file Not on file Not on file Travel History Travel Start Travel End No recent travel history available. Last Filed Vital Signs Not on file Plan of Treatment Health Maintenance Due Date Last Done Comments COLONOSCOPY SCREENING 1997 SHINGLES VACCINES (#1) 1997 65+ PNEUMOCOCCAL VACCINE (1 of 2 - PCV13) 2012 INFLUENZA VACCINE 06/16/2020 Implants Implanted Type Area Video Control Engineer Device Shelf Model / Identifier Expiration Serial / Lot Date Stent Coronary Syst Synergy (Mr) 3.00mm X 12mm - [id number] Coronary N/A: BSC 02/04/2019 [id number] / Implanted: Qty: 1 on 06/28/2018 by Golden Valadez MD at [facility] Stents N/A INTERVENTIONAL / CARDIOLOGY [id number] Patch Biosurg Selnt Fibrin Absrbl 9.5x4.8cm Tachosil - [id number] Surgical N/A: HWITE Paperspine 02/13/2017 [id number] / Implanted: Qty: 1 on 11/19/2016 by Rashid Fritz MD at [facility] Implants; N/A / Expanders; Extenders; Surgical Wires Kit Shunt Crtd Artery Rdopq Line 6in Strl [place] - [id number] Kiran gical N/A: COVDARRICK WISE 06/23/2021 [id number] / Implanted: 11/19/2016 at [facility] (Quantity not on file) Imp lants; N/A HEALTHCARE / Expanders; [id number] Extenders; Surgical Wires Patch Vasclr Perph 0.8x8cm Vascu-Guard - [id number] Vascular N/A: WHITE Paperspine 04/08/2021 [id number] / Implanted: 11/19/2016 at [facility] (Quantity not on file) Graft N/A / [id number] Results Not on fileafter 04/16/2019 Insurance Payer Benefit Plan / Subscriber ID Effective Dates Phone Addre ss Type Group MEDICARE MEDICARE PART A xxxxxxxxxx 2012-Present [facility] [place] [place] Medicare AND B Advance Directives For more information, please contact: [phone] Type Date Recorded Patient Talent Consultant Explanati on Advance Directives, Living Will and Medical Power of Php Developer
[2020-04-16 19:01] VITALS: BP 181/72; TEMP 97; O2SAT 98
--- NOTE | 2020-04-16 20:21 | ER ---
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 Bleeding controlled. <2 cm laceration to tip of finger. Coronavirus screen: Proceed with normal triage. Patient denies a cough. Patient denies shortness of breath or difficulty breathing. Patient denies measured and/or subjective temperature greater than 100.4F prior to today's visit. Patient denies travel on a cruise ship or to a country the [facility] currently lists as an affected area. Patient denies contact with known and/or suspected case of COVID-19. Ebola Screen: Patient denies travel to an Ebola-affected area in the 21 days before illness onset. Initial Sepsis Screen: Does the patient meet any 2 criteria? No. Patient's initial sepsis screen is negative. Does the patient have a suspected source of infection? No. Patient's initial sepsis screen is negative. Risk Assessment: Do you want to hurt yourself or someone else? Patient reports no desire to harm self or others. Onset of symptoms was April 16, 2020. 16:44 Method Of Arrival: Ambulatory ll1 16:44 Acuity: BELLA 4 ll1 Historical: - Allergies: 16:46 NKA; ll1 - PMHx: 16:46 Hypertension; CVA; Prostate Cancer; Schizophrenia; Arthritis; ll1 16:47 Myocardial infarction; High Cholesterol; ll1 - PSHx: 16:46 Cholecystectomy; right arm sx; Heart stents; abd sx; ll1 - Immunization history:: Adult Immunizations up to date, Last tetanus immunization: up to date. - Social history:: Smoking status: Patient reports the use of cigarette tobacco products, denies chronic smoking, but will smoke occasionally, Patient/guardian denies using alcohol, street drugs. Screenin:00 Abuse screen: Denies threats or abuse. Nutritional screening: No deficits noted. vc Tuberculosis screening: No symptoms or risk factors identified. Fall Risk None identified. Assessment: 18:00 General: Appears in no apparent distress. comfortable, Behavior is calm, cooperative, vc appropriate for age. Pain: Complains of pain in palmar aspect of distal phalanx of left index finger. Neuro: Level of Consciousness is awake, alert, obeys commands, Oriented to person, place, time, situation, Appropriate for age. Cardiovascular: Capillary refill < 3 seconds Patient's skin is warm and dry. Respiratory: Airway is patent Respiratory effort is even, unlabored, Respiratory pattern is regular, symmetrical. GI: No signs and/or symptoms were reported involving the gastrointestinal system. : No signs and/or symptoms were reported regarding the genitourinary system. Derm: Wound noted palmar aspect of distal phalanx of left index finger Wound is Less than 2 cm cut noted, no bleeding aris, no subcutaneous tissue noted. 18:43 Reassessment: Patient appears in no apparent distress at this time. Patient and/or vc family updated on plan of care and expected duration. Pain level reassessed. Patient is alert, oriented x 3, equal unlabored respirations, skin warm/dry/pink. Vital Signs: 16:44 BP 181 / 72; Pulse 54; Resp 18; Temp 97.0; Pulse Ox 98% ; Pain 0/10; ll1 ED Course: 16:28 Patient arrived in ED. mr 16:29 None, None is Private Physician. mr 16:45 Triage completed. ll1 16:46 Arm band placed on Patient notified of wait time. ll1 17:37 Favian Yanes PA is PHCP. cp 17:37 Favian Garcia MD is Attending Physician. cp 17:47 Daylin Mayorga RN is Primary Nurse. vc 18:43 No provider procedures requiring assistance completed. Patient did not have IV access vc during this emergency room visit. 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 Exp: vc 12/30/2020. Lot #: [id number]. } Route: IM; Site: left deltoid; 18:50 Follow up: Response: No adverse reaction vc 18:34 Not Given (Physician Discretion): Lidocaine (1 %) 10 ml 20 ml Infiltration once; to vc bedside Outcome: 18:38 Discharge ordered by . cp 18:53 Discharged to home ambulatory. vc 18:53 Condition: good 18:53 Discharge instructions given to patient, Instructed on discharge instructions, follow up and referral plans. Demonstrated understanding of instructions, follow-up care. 18:55 Patient left the ED. vc Signatures: Oquendo Ramya mr Favian Yanes PA PA cp Calcote, Vanessa, RN RN vc Edward Rodriguez RN RN ll1 Corrections: (The following items were deleted from the chart) 18:55 18:00 Pain: Complains of pain in palmar aspect of distal phalanx of left index finger vcvc 18:55 18:00 Derm: Wound noted palmar aspect of distal phalanx of left index finger vc vc
--- NOTE | 2020-04-16 20:22 | EDPHYS ---
Physician Documentation [facility] Name: Ashok Lopez Age: 74 yrs Sex: Male : 1945 Arrival Date: 04/16/2020 Time: 16:28 Bed 15 Private MD: None, None ED Physician Favian Garcia HPI: 04/16 17:50 This 74 yrs old Male presents to ER via Ambulatory with complaints of Finger cp laceration. 17:50 The patient has a laceration occurred at home, and there are no complicating factors. cp The injury was accidental. The laceration(s) is(are) located on the palmar aspect of distal phalanx of left index finger. Onset: The symptoms/episode began/occurred just prior to arrival. 17:50 Associated signs and symptoms: Pertinent negatives: heavy bleeding, numbness distal to cp injury, suspected foreign body. Historical: - Allergies: 16:46 NKA; ll1 - PMHx: 16:46 Hypertension; CVA; Prostate Cancer; Schizophrenia; Arthritis; ll1 16:47 Myocardial infarction; High Cholesterol; ll1 - PSHx: 16:46 Cholecystectomy; right arm sx; Heart stents; abd sx; ll1 - Immunization history:: Adult Immunizations up to date, Last tetanus immunization: up to date. - Social history:: Smoking status: Patient reports the use of cigarette tobacco products, denies chronic smoking, but will smoke occasionally, Patient/guardian denies using alcohol, street drugs. ROS: 17:55 Skin: Positive for laceration(s), of the distal phalanx left index finger. cp 17:55 All other systems are negative. cp Exam: 18:00 Musculoskeletal/extremity: ROM: full active range of motion, in the right index finger, cp Perfusion: the extremity is normally perfused throughout, Sensation intact. 18:00 Skin: injury, laceration(s), of the distal phalanx left index finger rodriguez side, that can be described as clean, no foreign body, linear, with mild bleeding. Vital Signs: 16:44 BP 181 / 72; Pulse 54; Resp 18; Temp 97.0; Pulse Ox 98% ; Pain 0/10; ll1 MDM: 17:37 Patient medically screened. cp 18:00 Differential diagnosis: superficial laceration, tendon injury, vascular injury. cp 18:35 Data reviewed: vital signs, nurses notes, and as a result, I will discharge patient. 18:38 Counseling: I had a detailed discussion with the patient and/or guardian regarding: the cp historical points, exam findings, and any diagnostic results supporting the discharge/admit diagnosis, to return to the emergency department if symptoms worsen or persist or if there are any questions or concerns that arise at home. 18:38 Response to treatment: the patient's symptoms have markedly improved after treatment, cp VS noted. Wound cleaned and dressing applied. Will discharge to home for continued monitoring. 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 Exp: vc 12/30/2020. Lot #: [id number]. } Route: IM; Site: left deltoid; 18:50 Follow up: Response: No adverse reaction vc 18:34 Not Given (Physician Discretion): Lidocaine (1 %) 10 ml 20 ml Infiltration once; to vc bedside Disposition: 18:45 Chart complete. 04/17 12:53 Co-signature as Attending Physician, Favian Garcia MD I agree with the assessment and [facility] plan of care. Disposition: 04/16/20 18:38 Discharged to Home. Impression: Laceration without foreign body of left index finger without damage to nail - superficial. - Condition is Stable. - Discharge Instructions: Laceration Care, Adult. - Medication Reconciliation Form, Thank You Letter, Antibiotic Education, Prescription Opioid Use form. - Follow up: Private Physician; When: 1 - 2 days; Reason: Wound Recheck, Worsening of condition. - Problem is new. - Symptoms have improved. Signatures: Favian Garcia MD MD cha Page, Corey, PA PA cp Calcote, Vanessa, RN RN vc Lewis, Lynsay, RN RN ll1 Corrections: (The following items were deleted from the chart) 04/16 18:55 18:38 04/16/2020 18:38 Discharged to Home. Impression: Laceration without foreign body vc of left index finger without damage to nail - superficial. Condition is Stable. Forms are Medication Reconciliation Form, Thank You Letter, Antibiotic Education, Prescription Opioid Use. Follow up: Private Physician; When: 1 - 2 days; Reason: Wound Recheck, Worsening of condition. Problem is new. Symptoms have improved. cp
== END 2020-04-16 18:55 | disposition home or self-care (01) ==
LOC: ER 16:22
DX: S61.211A Laceration without foreign body of left index finger without damage to nail, initial encounter (principal); W45.8XXA Other foreign body or object entering through skin, initial encounter; Y93.9 Activity, unspecified; Y92.009 Unspecified place in unspecified non-institutional (private) residence as the place of occurrence of the external cause; Z23 Encounter for immunization; Z95.818 Presence of other cardiac implants and grafts; I10 Essential (primary) hypertension
CPT/HCPCS: 90471; 90714; 99283

== ENCOUNTER 2020-11-14 17:30 | Emergency (ER) | payer OTHER ==
--- OUTSIDE RECORDS SUMMARY | 2020-11-14 17:33 | XMS REPORT | Clinical Summary ---
:1945 Author Organization [facility] Address [address] [place] [address] Care Team Providers Name Role Phone Asked, Pcp Primary Care Provider Unavailable Allergies No Known Active Allergies Medications Medication Sig Dispensed Refills Start Date End Date Status lisinopril Take 40 mg by 0 Activ e (PRINIVIL,ZESTRIL) 40 mouth nightly. mg tablet clopidogrel (PLAVIX) 75 Take 75 mg by 0 Active mg tablet mouth daily. Active Problems Problem Noted Date NSTEMI (non-ST elevated myocardial infarction) 018 Coronary artery disease involving [place] coronary angie ry with unstable 06/27/2018 angina pectoris Hypertension 06/27/2018 Mixed hyperlipidemia 06/27/2018 Class 2 obesity in adult 06/27/2018 Carotid artery stenosis, symptomatic 11/17/2016 Surgical History Surgery Date Site/Laterality Comments ENDARTERECTOMY, CAROTID 11/19/2016 Neck/Right Procedur e: RIGHT CAROTID ENDARTERECTOMY W ITH PATCH ANGIOPLASTY; Pastor rgeon: Rashid Fritz MD; Lo cation: [facility]; Ser vice: Vascular; Later ality: Right; Medical devices from this surgery are in t he Implants section. HERNIA REPAIR 11/16/2009 - Bilateral inguinal hernia 11/15/2010 CORONARY STENT PLACEMENT X 2 CHOLECYSTECTOMY 11/16/2008 - 11/15/2009 CARDIAC CATHETERIZATION 06/28/2018 N/A Procedur e: Cv selective coronary angiogr aphy; Surgeon: Golden Ascencio MD; Lo cation: [facility] Location; Service: Cardio vascular; Laterality: N/A; Medical devices from this surgery are in t he Implants section. CARDIAC CATHETERIZATION 06/28/2018 N/A Procedur e: Cv percutaneous coronary interve ntion; Surgeon: Golden Ascencio MD; Lo cation: [facility] Location; Service: Cardio vascular; Laterality: N/A; Medical devices from this surgery are in t he Implants section. CARDIAC CATHETERIZATION 06/28/2018 N/A Procedur e: Cv left heart cath w lv gram c ors; Surgeon: Golden Ascencio MD; Lo cation: [facility] Location; Service: Cardio vascular; Laterality: N/A; Medical devices from this surgery are in t he Implants section. Medical History Medical History Date Comments Cancer (HCC) prostate, with radia tion treatment (2013) Cholelithiasis Coronary artery disease Myocardial infarction (HCC) Hypertension Stroke (HCC) Biceps muscle tear, right, sequela Family History Medical History Relation Name Comments [...] Health Maintenance Due Date Last Done Comments COVID-19 VACCINE (#1) 1963 COLONOSCOPY SCREENING 1997 SHINGLES VACCINES (#1) 1997 65+ PNEUMOCOCCAL VACCINE (1 of 1 - PPSV23) 2012 INFLUENZA VACCINE 06/16/2020 Implants Implanted Type Area Wooden Tank Erector Device Shelf Model / Identifier Expiration Serial / Lot Date Stent Coronary Syst Synergy (Mr) 3.00mm X 12mm - [id number] Coronary N/A: BSC 02/04/2019 [id number] / Implanted: Qty: 1 on 06/28/2018 by Golden Valadez MD at [facility] Stents N/A INTERVENTIONAL / CARDIOLOGY [id number] Patch Biosurg Selnt Fibrin Absrbl 9.5x4.8cm Tachosil - [id number] Surgical N/A: WHITE BIOSCIENCE 02/13/2017 [id number] / Implanted: Qty: 1 on 11/19/2016 by Rashid Fritz MD at [facility] Implants; N/A / Expanders; Extenders; Surgical Wires Kit Shunt Crtd Artery Rdopq Line 6in Strl [place] - [id number] Kiran gical N/A: STEPHANIE WISE 06/23/2021 [id number] / Implanted: 11/19/2016 at [facility] (Quantity not on file) Imp lants; N/A HEALTHCARE / Expanders; [id number] Extenders; Surgical Wires Patch Vasclr Perph 0.8x8cm Vascu-Guard - [id number] Vascular N/A: WHITE BIOSCIENCE 04/08/2021 [id number] / Implanted: 11/19/2016 at [facility] (Quantity not on file) Graft N/A / [id number] Results Not on fileafter 11/14/2019 Insurance Payer Benefit Plan / Subscriber ID Effective Dates Phone Addre ss Type Group MEDICARE MEDICARE PART A [id number] 2012-Present [place], [place] Medicare AND B Advance Directives For more information, please contact: [phone] Type Date Recorded Patient Vacuum System Tester Explanati on Advance Directives, Living Will and Medical Power of Top Executive
--- NOTE | 2020-11-14 18:25 | RAD REPORT ---
EXAM DESCRIPTION: RAD - Chest Single View - 11/14/2020 6:17 pm CLINICAL HISTORY: cough/covid-19 Chest pain. COMPARISON: Chest Single View dated 06/26/2018; Chest Single View dated 06/25/2018; Chest Single View dated 11/13/2016; Chest Single View dated 11/12/2016 FINDINGS: Portable technique limits examination quality. The lungs are grossly clear. The heart is mildly enlarged in size. No displaced fractures. IMPRESSION: No acute intrathoracic process suspected.
--- NOTE | 2020-11-14 19:07 | RAD REPORT ---
EXAM DESCRIPTION: CT - Head Brain Wo Cont - 11/14/2020 6:43 pm CLINICAL HISTORY: Feels off balance, dizzy Headache, dizziness COMPARISON: Head Brain Wo Cont dated 06/26/2018; Head Brain Wo Cont dated 11/12/2016 TECHNIQUE: All CT scans are performed using dose optimization technique as appropriate and may inclu de automated exposure control or mA/KV adjustment according to patient size. FINDINGS: No intracranial hemorrhage, hydrocephalus or extra-axial fluid collection.Mild brain atrop hy.No areas of brain edema or evidence of midline shift. The paranasal sinuses and mastoids are clear. The calvarium is intact. IMPRESSION: No acute intracranial abnormality.
[2020-11-14 20:18] LABS: Absolute Lymphocytes (CBC) 1.3 K/uL (0.7-4.9); Basophils % 0.5 % (0-1.3); Hematocrit 44.7 % (39.6-49.0); MPV 9.7 fL (7.6-11.3); RBC Red Blood Cell Count 4.44 M/uL (4.33-5.43)
[2020-11-14 20:26] LABS: ALT/SGPT 50 U/L (12-78); AST/SGOT 39 U/L (15-37); Albumin 3.4 g/dL (3.4-5.0); Alkaline Phosphatase 88 U/L (45-117); BUN Blood Urea Nitrogen 20 mg/dL (7-18); Bicarbonate 26 mmol/L (21-32); Bilirubin Direct 0.2 mg/dL (0-0.2); Bilirubin Total 0.7 mg/dL (0.2-1.0); Glucose Level 81 mg/dL (74-106); Lipase 257 U/L (73-393); Potassium 4.2 mmol/L (3.5-5.1); Protein, Total 8.3 g/dL (6.4-8.2); Sodium Level 136 mmol/L (136-145); Troponin (Emerg Dept Use Only) < 0.02 ng/mL (0.0-0.045)
[2020-11-14] MEDS ORDERED: NA CHLORIDE 0.9% 1,000 ML ONE (20:40)
[2020-11-14 20:56] LABS: Urine Blood NEGATIVE (NEG); Urine Glucose NEGATIVE (NEG); Urine Protein 1+ (NEG); Urine Specific Gravity 1.025 (1.005-1.030); Urine pH 5.5 (5.0-7.0)
[2020-11-14 20:58] LABS: Protime INR 1.16
--- NOTE | 2020-11-14 23:19 | EDPHYS ---
Physician Documentation [facility] Name: Ashok Lopez Age: 75 yrs Sex: Male : 1945 Arrival Date: 11/14/2020 Time: 17:32 Bed 6 Private MD: ED Physician Tarun Damon HPI: 11/14 19:42 This 75 yrs old Male presents to ER via Ambulatory with complaints of Covid mh7 +, Diarrhea, Balance problem/dizzy. 19:42 The patient presents to the emergency department with nausea, that is mild, diarrhea, mh7 that is intermittent, 2 times since the onset of symptoms. Onset: The symptoms/episode began/occurred 3 day(s) ago. Possible causes: unknown. The symptoms are aggravated by nothing. The symptoms are alleviated by nothing. Associated signs and symptoms: Pertinent negatives: abdominal pain, anorexia, belching, constipation, dysuria, fever, flatulence, GI bleeding, hematuria, vomiting, dizziness. Severity of symptoms: At their worst the symptoms were moderate 3 day(s) ago, in the emergency department the symptoms have improved moderately. Patient reports recent positive COVID test. Historical: - Allergies: 17:48 NKA; aa5 - Home Meds: 17:48 aspirin 325 mg Oral tab [Active]; atorvastatin 20 mg Oral tab 1 tab once daily aa5 [Active]; lisinopril 40 mg Oral tab [Active]; meloxicam 7.5 mg Oral tab 1 tab once daily [Active]; olanzapine 15 mg Oral tab 1 tab once daily [Active]; omeprazole 20 mg Oral cpDR 1 cap once daily [Active]; Plavix 75 mg Oral tab 1 tab once daily [Active]; zolpidem 10 mg Oral tab 1 tab once daily [Active]; - PMHx: 17:48 Arthritis; CVA; High Cholesterol; Hypertension; Myocardial infarction; Prostate Cancer; aa5 Schizophrenia; - PSHx: 17:48 Cholecystectomy; right arm sx; Heart stents; abd sx; Carotid artery stent; aa5 - Immunization history:: Flu vaccine is not up to date. - Social history:: Smoking status: Patient denies any tobacco usage or history of. ROS: 19:42 Constitutional: Negative for fever, chills, and weight loss, Eyes: Negative for injury, mh7 pain, redness, and discharge, ENT: Negative for injury, pain, and discharge, Neck: Negative for injury, pain, and swelling, Cardiovascular: Negative for chest pain, palpitations, and edema, Back: Negative for injury and pain, : Negative for injury, bleeding, discharge, and swelling, MS/Extremity: Negative for injury and deformity, Skin: Negative for injury, rash, and discoloration, Neuro: Negative for headache, weakness, numbness, tingling, and seizure, Psych: Negative for depression, anxiety, suicide ideation, homicidal ideation, and hallucinations, Allergy/Immunology: Negative for hives, rash, and allergies, Endocrine: Negative for neck swelling, polydipsia, polyuria, polyphagia, and marked weight changes, Hematologic/Lymphatic: Negative for swollen nodes, abnormal bleeding, and unusual bruising. Exam: 19:42 Constitutional: This is a well developed, well nourished patient who is awake, alert, mh7 and in no acute distress. Head/Face: Normocephalic, atraumatic. Eyes: Pupils equal round and reactive to light, extra-ocular motions intact. Lids and lashes normal. Conjunctiva and sclera are non-icteric and not injected. Cornea within normal limits. Periorbital areas with no swelling, redness, or edema. Neck: Trachea midline, no thyromegaly or masses palpated, and no cervical lymphadenopathy. Supple, full range of motion without nuchal rigidity, or vertebral point tenderness. No Meningismus. Chest/axilla: Normal chest wall appearance and motion. Nontender with no deformity. No lesions are appreciated. Cardiovascular: Regular rate and rhythm with a normal S1 and S2. No gallops, murmurs, or rubs. Normal PMI, no JVD. No pulse deficits. Respiratory: Lungs have equal breath sounds bilaterally, clear to auscultation and percussion. No rales, rhonchi or wheezes noted. No increased work of breathing, no retractions or nasal flaring. Abdomen/GI: Soft, non-tender, with normal bowel sounds. No distension or tympany. No guarding or rebound. No evidence of tenderness throughout. Back: No spinal tenderness. No costovertebral tenderness. Full range of motion. Skin: Warm, dry with normal turgor. Normal color with no rashes, no lesions, and no evidence of cellulitis. MS/ Extremity: Pulses equal, no cyanosis. Neurovascular intact. Full, normal range of motion. Neuro: Awake and alert, GCS 15, oriented to person, place, time, and situation. Cranial nerves II-XII grossly intact. Motor strength 5/5 in all extremities. Sensory grossly intact. Cerebellar exam normal. Normal gait. Psych: Awake, alert, with orientation to person, place and time. Behavior, mood, and affect are within normal limits. Vital Signs: 17:40 BP 117 / 58; Pulse 57; Resp 18 S; Temp 97.9(O); Pulse Ox 98% on R/A; Weight 81.65 kg aa5 (R); Height 5 ft. 5 in. (165.10 cm) (R); Pain 0/10; 21:13 BP 130 / 51; Pulse 45; Resp 18; Pulse Ox 95% on R/A; rv 17:40 Body Mass Index 29.95 (81.65 kg, 165.10 cm) aa5 MDM: 23:15 Differential diagnosis: viral gastroenteritis, gastroenteritis, Dehydration, Diarrhea. [facility] Data reviewed: vital signs, nurses notes, lab test result(s), cardiac enzymes, CBC, electrolytes, urinalysis, EKG, radiologic studies, CT scan, plain films. Data interpreted: Pulse oximetry: on room air is 98 %. Interpretation: normal. Counseling: I had a detailed discussion with the patient and/or guardian regarding: the historical points, exam findings, and any diagnostic results supporting the discharge/admit diagnosis, lab results, radiology results, the need for outpatient follow up, to return to the emergency department if symptoms worsen or persist or if there are any questions or concerns that arise at home. Response to treatment: the patient's symptoms have resolved after treatment, the patient's blood pressure is in an acceptable range, mental status has returned to baseline, the patient no longer shows bradycardia, the patient is not short of breath, the patient is not tachycardic, the patient's pain is gone, the patient's temperature has normalized. 23:18 Patient medically screened. [facility] 11/14 19:38 Order name: Basic Metabolic Panel; Complete Time: 21:18 [facility] 11/14 19:38 Order name: CBC with Diff; Complete Time: 21:18 [facility] 11/14 19:38 Order name: Hepatic Function; Complete Time: 21:18 [facility] 11/14 19:38 Order name: Lipase; Complete Time: 21:18 7 11/14 19:38 Order name: Troponin (emerg Dept Use Only); Complete Time: 21:18 7 11/14 17:53 Order name: CT Head Brain wo Cont; Complete Time: 19:19 aa5 11/14 17:53 Order name: Chest Single View XRAY; Complete Time: 19:19 11/14 17:53 Order name: EKG - Nurse/Tech; Complete Time: 18:02 [facility] 11/14 19:41 Order name: Protime (+inr); Complete Time: 21:18 7 11/14 19:41 Order name: Ptt, Activated; Complete Time: 21:18 11/14 20:45 Order name: Urine Dipstick--Ancillary (enter results); Complete Time: 21:18 tt3 11/14 21:19 Order name: CT Abd/Pelvis - Without Contrast [facility] 11/14 19:38 Order name: IV Saline Lock; Complete Time: 20:48 7 11/14 19:38 Order name: Labs collected and sent; Complete Time: 19:59 11/14 19:38 Order name: Urine Dipstick-Ancillary (obtain specimen); Complete Time: 20:48 mh7 Administered Medications: 20:48 Drug: NS 0.9% 1000 ml Route: IV; Rate: 1000 ml; Site: left forearm; rv Disposition: 11/14/20 23:18 Discharged to Home. Impression: COVID Pneumonitis, Diarrhea, Dehydration. - Condition is Stable. - Discharge Instructions: Diarrhea, Adult, Peam-ug-Mvxm, Dehydration, Adult, Hwog-vy-Cfxg, COVID-19. - Prescriptions for Tessalon Perles 100 mg Oral Capsule - take 1 capsule by ORAL route every 8 hours As needed; 15 capsule. Zithromax Z- David 250 mg Oral Tablet - take 1 tablet by ORAL route as directed for 5 days Day 1 - take two (2) tablets one time. Day 2, 3, 4 , 5 take one (1) tablet once daily.; 6 tablet. Albuterol Sulfate 90 mcg/actuation - inhale 1-2 puff by INHALATION route every 4-6 hours; 1 Inhaler. - Medication Reconciliation Form, Thank You Letter, Antibiotic Education, Prescription Opioid Use form. - Follow up: Private Physician; When: 1 - 2 days; Reason: Worsening of condition, Recheck today's complaints, Continuance of care, Re-evaluation by your physician. - Problem is new. - Symptoms have improved. Signatures: Dispatcher [employer] EDMonty Ly RN RN Apolonia Bernal RN RN aa5 Dipak Martin RN RN rv Holmes, Maurice, MD MD mh7 Corrections: (The following items were deleted from the chart) 23:34 23:18 11/14/2020 23:18 Discharged to Home. Impression: COVID Pneumonitis; Diarrhea; sg Dehydration. Condition is Stable. Forms are Medication Reconciliation Form, Thank You Letter, Antibiotic Education, Prescription Opioid Use. Follow up: Private Physician; When: 1 - 2 days; Reason: Worsening of condition, Recheck today's complaints, Continuance of care, Re-evaluation by your physician. Problem is new. Symptoms have improved. mh7
--- NOTE | 2020-11-14 23:19 | ER ---
Nurse's Notes [facility] Name: Ashok Lopez Age: 75 yrs Sex: Male : 1945 Arrival Date: 11/14/2020 Time: 17:32 Bed 6 Private MD: Diagnosis: COVID Pneumonitis;Diarrhea;Dehydration Presentation: 11/14 17:40 Chief complaint: Patient states: "I got diagnosed with COVID on Thursday at the [place]". Pt aa5 reports cough, chills, diarrhea x 2-3 days ago. Pt denies vomiting, reports decreased appetite. Pt states "I feel off balance since Thursday". Pt also reports some dizziness, pt with steady gait, no neuro deficits noted. 17:40 Coronavirus screen: Client presents with at least one sign or symptom that may indicate aa5 coronavirus-19. Standard/surgical mask placed on the client. Provider contacted for isolation considerations. Ebola Screen: Patient negative for fever greater than or equal to 101.5 degrees Fahrenheit, and additional compatible Ebola Virus Disease symptoms. Initial Sepsis Screen: Does the patient meet any 2 criteria? No. Patient's initial sepsis screen is negative. Does the patient have a suspected source of infection? Yes: Productive cough/pneumonia. Risk Assessment: Do you want to hurt yourself or someone else? Patient reports no desire to harm self or others. Onset of symptoms was October 2020. 17:40 Acuity: BELLA 2 aa5 17:40 Method Of Arrival: Ambulatory aa5 Historical: - Allergies: 17:48 NKA; aa5 - Home Meds: 17:48 aspirin 325 mg Oral tab [Active]; atorvastatin 20 mg Oral tab 1 tab once daily aa5 [Active]; lisinopril 40 mg Oral tab [Active]; meloxicam 7.5 mg Oral tab 1 tab once daily [Active]; olanzapine 15 mg Oral tab 1 tab once daily [Active]; omeprazole 20 mg Oral cpDR 1 cap once daily [Active]; Plavix 75 mg Oral tab 1 tab once daily [Active]; zolpidem 10 mg Oral tab 1 tab once daily [Active]; - PMHx: 17:48 Arthritis; CVA; High Cholesterol; Hypertension; Myocardial infarction; Prostate Cancer; aa5 Schizophrenia; - PSHx: 17:48 Cholecystectomy; right arm sx; Heart stents; abd sx; Carotid artery stent; aa5 - Immunization history:: Flu vaccine is not up to date. - Social history:: Smoking status: Patient denies any tobacco usage or history of. Vital Signs: 17:40 BP 117 / 58; Pulse 57; Resp 18 S; Temp 97.9(O); Pulse Ox 98% on R/A; Weight 81.65 kg aa5 (R); Height 5 ft. 5 in. (165.10 cm) (R); Pain 0/10; 21:13 BP 130 / 51; Pulse 45; Resp 18; Pulse Ox 95% on R/A; rv 17:40 Body Mass Index 29.95 (81.65 kg, 165.10 cm) aa5 ED Course: 17:32 Patient arrived in ED. ag5 17:44 Arm band placed on. aa5 17:46 Triage completed. aa5 18:17 Chest Single View XRAY In Process Unspecified. EDMS 18:44 CT Head Brain wo Cont In Process Unspecified. EDMS 19:17 Tarun Damon MD is Attending Physician. [facility] 19:20 Dipak Martin, RN is Primary Nurse. rv 19:55 Missed attempt(s): 20 gauge in right forearm. 22 gauge in right forearm. Bleeding ds4 controlled, band aid applied, catheter tip intact. 20:48 Initial lab(s) drawn, by nm, sent to lab. Inserted saline lock: 20 gauge in left rv forearm, using aseptic technique. Blood collected. 22:07 CT Abd/Pelvis - Without Contrast In Process Unspecified. EDMS Administered Medications: 20:48 Drug: NS 0.9% 1000 ml Route: IV; Rate: 1000 ml; Site: left forearm; rv Outcome: 23:18 Discharge ordered by . [facility] 23:34 Patient left the ED. sg Signatures: Dispatcher [employer] EDMS Monty Almeida RN RN Apolonia Medeiros RN RN 5 Henrique Meraz ds4 Dipak Martin, ARTURO RN Leena Pratt 5 Tarun Damon MD MD [facility]
[2020-11-14 23:41] VITALS: TEMP 97.9
[2020-11-14 23:42] VITALS: BP 130/51; O2SAT 95
--- NOTE | 2020-11-15 18:53 | RAD REPORT ---
EXAM DESCRIPTION: CT ABDOMEN AND PELVIS WITHOUT CONTRAST CLINICAL HISTORY: Diarrhea, abdominal pain. COMPARISON: None. TECHNIQUE: Axial unenhanced CT imaging of the abdomen and pelvis performed. Reformatted coronal and sagittal images reviewed. A dose reduction technique was utilized with automated exposure control according to patient size. FINDINGS: Minimal left lower lobe atelectasis with possible pneumonitis. Trace left pleural fluid. Heart is normal in size. There is a pulmonary cyst within the medial right lobe the liver. The liver is normal in size. Slight decreased attenuation due to fatty infiltration. Gallbladder has been resected. Normal spleen, pancreas, adrenal glands. There is a posterior superior right r enal 1.6 cm cyst. Lateral left renal 2.5 cm cyst. No hydronephrosis. No renal stone. There is a medial left renal 1.6 cm cyst. There is significant abdominal aorta and iliac atherosclerosis. There is a distal abdominal aorta f usiform aneurysm, 4.5 cm AP. No retroperitoneal lymphadenopathy. Normal stomach, small bowel loops, appendix in the right lower quadrant. Mild diverticulosis in the distal descending and sigmoid colon. No diverticulitis. No ascites or free air. Unremarkable bladder. Normal prostate size. There are dystrophic prostatic calcifications. Smal l fat-containing left inguinal hernia. There is evidence of anterior pelvic hernia repair. Normal lumbar lordosis. Bony pelvis appears intact. Unremarkable soft tissues. IMPRESSION: 1. No acute finding within the abdomen or pelvis. 2. Mild descending and sigmoid colon diverticulosis without diverticulitis. 3. Bilateral renal cysts. 4. 4.5 cm abdominal aortic aneurysm. Recommend follow-up every 6 months and vascular consultation. Reference: J Am Ruth Radiol 2013;10:789-794. 5. Left lower lobe atelectasis with possible pneumonitis. Trace left pleural effusion. Electronically signed by: Radha Field DO 11/14/2020 10:26 PM INFORMATION SERVICES VICE PRESIDENT Due to temporary technical issues with the PACS/Fluency reporting system, reports are being signed by the in house radiologists without review as a courtesy to insure prompt reporting. The interpreting radiologist is fully responsible for the content of the report
--- NOTE | 2020-11-16 16:13 | EKG ---
Test Date: 2020-11-14 Test Time: 18:05:54 [employer] Train Driver: SUNDAY MEASUREMENT RESULTS: Intervals: Rate: 46 HI: 164 QRSD: 90 QT: 454 QTc: 397 [place]: P: 76 HI: 164 QRS: 61 T: 67 INTERPRETIVE STATEMENTS: Sinus bradycardia Otherwise normal ECG Compared to ECG 06/26/2018 22:59:14 T-wave abnormality no longer present Electronically Signed On 11-16-20 16:09:47 DISCHARGE SPECIALIST by Arjun Luu
== END 2020-11-14 23:34 | disposition home or self-care (01) ==
LOC: ER 17:30
DX: U07.1 COVID-19 (principal); J12.89 Other viral pneumonia; E86.0 Dehydration; R19.7 Diarrhea, unspecified; I10 Essential (primary) hypertension; F20.9 Schizophrenia, unspecified; Z85.46 Personal history of malignant neoplasm of prostate; Z79.01 Long term (current) use of anticoagulants; Z79.82 Long term (current) use of aspirin; Z95.818 Presence of other cardiac implants and grafts; Z86.73 Personal history of transient ischemic attack (TIA), and cerebral infarction without residual deficits
CPT/HCPCS: 93005; 85025; 80048; 36415; 85610; 80076; 85730; 81003; 84484; 83690; 70450; 74176; 71045; 99284; J7030

== ENCOUNTER 2021-07-13 13:40 | Emergency (ER) | payer OTHER ==
--- NOTE | 2021-07-13 15:23 | RAD REPORT ---
EXAM DESCRIPTION: RAD - Chest Single View - 07/13/2021 3:05 pm CLINICAL HISTORY: COUGH Chest pain. COMPARISON: Chest Single View dated 11/14/2020; Chest Single View dated 06/26/2018; Chest Single View dated 06/25/2018; Chest Single View dated 11/13/2016 FINDINGS: Portable technique limits examination quality. The lungs are grossly clear. The heart is upper limit of normal in size. No displaced fractures. IMPRESSION: No acute intrathoracic process suspected.
[2021-07-13 15:25] LABS: Absolute Lymphocytes (CBC) 1.3 K/uL (0.7-4.9); Basophils % 0.9 % (0-1.3); Hematocrit 42.9 % (39.6-49.0); Lymphocytes % 19.3 % (15.3-44.8); MPV 8.3 fL (7.6-11.3); RBC Red Blood Cell Count 4.25 M/uL (4.33-5.43)
[2021-07-13 15:38] LABS: Protime INR 1.11
--- NOTE | 2021-07-13 15:49 | RAD REPORT ---
EXAM DESCRIPTION: CT - Head Brain Wo Cont - 07/13/2021 3:44 pm CLINICAL HISTORY: HEADACHE Hypertension, headache, drowsiness COMPARISON: Head Brain Wo Cont dated 11/14/2020; Head Brain Wo Cont dated 06/26/2018 TECHNIQUE: All CT scans are performed using dose optimization technique as appropriate and may inclu de automated exposure control or mA/KV adjustment according to patient size. FINDINGS: No intracranial hemorrhage, hydrocephalus or extra-axial fluid collection.Mild brain atrop hy is present.No areas of brain edema or evidence of midline shift. The paranasal sinuses and mastoids are clear. The calvarium is intact. IMPRESSION: No acute intracranial abnormality.
[2021-07-13 15:51] LABS: ALT/SGPT 26 U/L (12-78); Albumin 3.8 g/dL (3.4-5.0); Alkaline Phosphatase 66 U/L (45-117); BUN Blood Urea Nitrogen 17 mg/dL (7-18); Bicarbonate 24 mmol/L (21-32); Bilirubin Direct 0.1 mg/dL (0-0.2); Bilirubin Total 0.6 mg/dL (0.2-1.0); Glucose Level 84 mg/dL (74-106); NT PRO-BNP 519 pg/mL (<125); Protein, Total 8.2 g/dL (6.4-8.2); Sodium Level 137 mmol/L (136-145); Troponin (Emerg Dept Use Only) < 0.02 ng/mL (0.0-0.045)
[2021-07-13 15:57] LABS: AST/SGOT 13 U/L (15-37); Magnesium 2.3 mg/dL (1.8-2.4); Potassium 4.5 mmol/L (3.5-5.1)
--- NOTE | 2021-07-13 16:07 | ER ---
Nurse's Notes [facility] Name: Ashok Lopez Age: 75 yrs Sex: Male : 1945 Arrival Date: 07/13/2021 Time: 13:44 Bed 18 Private MD: Diagnosis: Dental root caries;Dental caries, unspecified;Essential (primary) hypertension Presentation: 07/13 14:10 Chief complaint: Patient states: took his BP at home and was 225/92, normally takes iw lisinopril 40 mg daily , had it this morning, is having a headache, has had previous stroke and two heart attacks , right now has an infected tooth that is causing him a lot of pain. Coronavirus screen: At this time, the client does not indicate any symptoms associated with coronavirus-19. Ebola Screen: Patient negative for fever greater than or equal to 101.5 degrees Fahrenheit, and additional compatible Ebola Virus Disease symptoms Patient denies exposure to infectious person. Patient denies travel to an Ebola-affected area in the 21 days before illness onset. No symptoms or risks identified at this time. Initial Sepsis Screen: Does the patient meet any 2 criteria? No. Patient's initial sepsis screen is negative. Does the patient have a suspected source of infection? No. Patient's initial sepsis screen is negative. Risk Assessment: Do you want to hurt yourself or someone else? Patient reports no desire to harm self or others. Onset of symptoms was July 13, 2021. 14:10 Method Of Arrival: Ambulatory iw 14:10 Acuity: BELLA 2 iw Triage Assessment: 16:17 General: Appears in no apparent distress. Behavior is calm, cooperative, appropriate tr6 for age. Pain: Complains of pain in mouth. EENT: No deficits noted. Neuro: No deficits noted. Cardiovascular: No deficits noted. Respiratory: No deficits noted. GI: No deficits noted. : No deficits noted. Derm: No deficits noted. Musculoskeletal: No deficits noted. Historical: - Allergies: 14:13 NKA; iw - Home Meds: 14:13 aspirin 325 mg Oral tab [Active]; lisinopril 40 mg Oral tab [Active]; Plavix 75 mg Oral iw tab 1 tab once daily [Active]; - PMHx: 14:13 Arthritis; CVA; High Cholesterol; Hypertension; Myocardial infarction; Prostate Cancer; iw Schizophrenia; Angina pectoris; Screenin:16 Abuse screen: Denies threats or abuse. Denies injuries from another. Nutritional tr6 screening: No deficits noted. Tuberculosis screening: No symptoms or risk factors identified. Fall Risk Fall in past 12 months (25 points). Vital Signs: 14:10 BP 202 / 66; Pulse 51; Resp 16; Temp 97.6; Pulse Ox 97% on R/A; iw 14:33 BP 182 / 65; ss 16:06 BP 150 / 82; Pulse 55; Resp 18; Pulse Ox 100% on R/A; tr6 ED Course: 13:44 Patient arrived in ED. mr 14:13 Triage completed. iw 14:14 Arm band placed on. iw 14:24 Sunni Dean, RN is Primary Nurse. tr6 14:35 Favian Garcia MD is Attending Physician. anurag 15:05 XRAY Chest (1 view) In Process Unspecified. EDMS 15:44 CT Head Brain wo Cont In Process Unspecified. EDMS 16:00 Inserted saline lock: 18 gauge in left wrist, using aseptic technique. Blood collected. tr6 16:06 Alvaro Baca DDS is Referral Physician. anurag 16:16 Patient has correct armband on for positive identification. Fall risk band placed. tr6 Placed in gown. Bed in low position. Call light in reach. Side rails up X 1. Pulse ox on. NIBP on. Door closed. Noise minimized. Visitors limited. Lights dimmed. Moved to private room. Warm blanket given. 16:16 No provider procedures requiring assistance completed. tr6 16:18 IV discontinued, intact, bleeding controlled, No redness/swelling at site. Pressure tr6 dressing applied. Administered Medications: 15:54 Drug: morphine 4 mg Route: IVP; Site: left wrist; tr6 15:54 Drug: Zofran (Ondansetron) 4 mg Route: IVP; Site: left wrist; tr6 16:16 Drug: [place] (HYDROcodone-acetaminophen) 10 mg-325 mg 1 tabs Route: PO; tr6 16:16 Not Given (Other Intervention Used): Norvasc (amlodipine) 5 mg PO once tr6 Outcome: 16:06 Discharge ordered by . anurag 16:17 Discharged to home ambulatory, pt refused wheelchair at this time tr6 16:17 Condition: good 16:17 Discharge instructions given to patient, significant other, Instructed on discharge instructions, follow up and referral plans. medication usage, safety practices, Demonstrated understanding of instructions, follow-up care, medications, Prescriptions given X 3. 16:18 Patient left the ED. tr6 Signatures: Dispatcher [employer] EDWV Favian Garcia MD MD cha Rivera, Ramya mr Luz Stout RN RN iw Georgina Ogden RN RN ss Ramnanan, Tiffany, RN RN tr6 Corrections: (The following items were deleted from the chart) 14:13 14:13 Home Meds: atorvastatin 20 mg Oral tab 1 tab once daily; iw iw
--- NOTE | 2021-07-13 16:07 | EDPHYS ---
Physician Documentation [facility] Name: Ashok Lopez Age: 75 yrs Sex: Male : 1945 Arrival Date: 07/13/2021 Time: 13:44 Bed 18 Private MD: JEFF Physician Favian Garcia HPI: 07/13 16:04 This 75 yrs old Male presents to ER via Ambulatory with complaints of High anurag Blood Pressure. 16:04 The patient has elevated blood pressure and discovered this at home. Onset: The anurag symptoms/episode began/occurred 3 day(s) ago. Modifying factors: The symptoms are aggravated by activity, The symptoms are alleviated by remaining still. Associated signs and symptoms: The patient has no apparent associated signs or symptoms. Severity of symptoms: At its worst the blood pressure was moderate, in the emergency department the blood pressure is improved, mildly. The patient has experienced similar episodes in the past, several times. Historical: - Allergies: 14:13 NKA; iw - Home Meds: 14:13 aspirin 325 mg Oral tab [Active]; lisinopril 40 mg Oral tab [Active]; Plavix 75 mg Oral iw tab 1 tab once daily [Active]; - PMHx: 14:13 Arthritis; CVA; High Cholesterol; Hypertension; Myocardial infarction; Prostate Cancer; iw Schizophrenia; Angina pectoris; ROS: 16:04 Constitutional: Negative for fever, chills, and weight loss, Eyes: Negative for injury, anurag pain, redness, and discharge, Neck: Negative for injury, pain, and swelling, Cardiovascular: Negative for chest pain, palpitations, and edema, Respiratory: Negative for shortness of breath, cough, wheezing, and pleuritic chest pain, Abdomen/GI: Negative for abdominal pain, nausea, vomiting, diarrhea, and constipation, Back: Negative for injury and pain, : Negative for injury, bleeding, discharge, and swelling, MS/Extremity: Negative for injury and deformity, Skin: Negative for injury, rash, and discoloration, Neuro: Negative for headache, weakness, numbness, tingling, and seizure, Psych: Negative for depression, anxiety, suicide ideation, homicidal ideation, and hallucinations, Allergy/Immunology: Negative for hives, rash, and allergies, Endocrine: Negative for neck swelling, polydipsia, polyuria, polyphagia, and marked weight changes, Hematologic/Lymphatic: Negative for swollen nodes, abnormal bleeding, and unusual bruising. 16:04 ENT: Positive for Gum pain Teeth pain Exam: 16:04 Constitutional: This is a well developed, well nourished patient who is awake, alert, anurag and in no acute distress. Eyes: Pupils equal round and reactive to light, extra-ocular motions intact. Lids and lashes normal. Conjunctiva and sclera are non-icteric and not injected. Cornea within normal limits. Periorbital areas with no swelling, redness, or edema. ENT: Nares patent. No nasal discharge, no septal abnormalities noted. Tympanic membranes are normal and external auditory canals are clear. Oropharynx with no redness, swelling, or masses, exudates, or evidence of obstruction, uvula midline. Mucous membranes moist. Neck: Trachea midline, no thyromegaly or masses palpated, and no cervical lymphadenopathy. Supple, full range of motion without nuchal rigidity, or vertebral point tenderness. No Meningismus. Chest/axilla: Normal chest wall appearance and motion. Nontender with no deformity. No lesions are appreciated. Cardiovascular: Regular rate and rhythm with a normal S1 and S2. No gallops, murmurs, or rubs. Normal PMI, no JVD. No pulse deficits. Respiratory: Lungs have equal breath sounds bilaterally, clear to auscultation and percussion. No rales, rhonchi or wheezes noted. No increased work of breathing, no retractions or nasal flaring. Abdomen/GI: Soft, non-tender, with normal bowel sounds. No distension or tympany. No guarding or rebound. No evidence of tenderness throughout. Back: No spinal tenderness. No costovertebral tenderness. Full range of motion. Male : Normal genitalia with no discharge or lesions. Skin: Warm, dry with normal turgor. Normal color with no rashes, no lesions, and no evidence of cellulitis. MS/ Extremity: Pulses equal, no cyanosis. Neurovascular intact. Full, normal range of motion. Neuro: Awake and alert, GCS 15, oriented to person, place, time, and situation. Cranial nerves II-XII grossly intact. Motor strength 5/5 in all extremities. Sensory grossly intact. Cerebellar exam normal. Normal gait. Psych: Awake, alert, with orientation to person, place and time. Behavior, mood, and affect are within normal limits. 16:04 Head/face: Noted is swelling, that is mild, of the lower left second molar and lower left first molar. Vital Signs: 14:10 BP 202 / 66; Pulse 51; Resp 16; Temp 97.6; Pulse Ox 97% on R/A; iw 14:33 BP 182 / 65; ss 16:06 BP 150 / 82; Pulse 55; Resp 18; Pulse Ox 100% on R/A; tr6 MDM: 14:35 Patient medically screened. [facility] 07/13 14:38 Order name: Basic Metabolic Panel; Complete Time: 15:59 [facility] 07/13 14:38 Order name: CBC with Diff; Complete Time: 15:59 [facility] 07/13 14:38 Order name: LFT's; Complete Time: 15:59 [facility] 07/13 14:38 Order name: Magnesium; Complete Time: 15:59 [facility] 07/13 14:38 Order name: NT PRO-BNP; Complete Time: 15:59 [facility] 07/13 14:38 Order name: PT-INR; Complete Time: 15:59 [facility] 07/13 14:38 Order name: Troponin (emerg Dept Use Only); Complete Time: 15:59 [facility] 07/13 14:38 Order name: XRAY Chest (1 view); Complete Time: 15:59 [facility] 07/13 14:38 Order name: EKG; Complete Time: 14:39 [facility] 07/13 14:38 Order name: CT Head Brain wo Cont; Complete Time: 15:59 [facility] 07/13 14:38 Order name: IV Saline Lock; Complete Time: 15:30 [facility] 07/13 14:38 Order name: Labs collected and sent; Complete Time: 15:30 [facility] 07/13 14:38 Order name: O2 Per Protocol; Complete Time: 15:30 [facility] 07/13 14:38 Order name: O2 Sat Monitoring; Complete Time: 15:30 [facility] Administered Medications: 15:54 Drug: morphine 4 mg Route: IVP; Site: left wrist; tr6 15:54 Drug: Zofran (Ondansetron) 4 mg Route: IVP; Site: left wrist; tr6 16:16 Drug: [place] (HYDROcodone-acetaminophen) 10 mg-325 mg 1 tabs Route: PO; tr6 16:16 Not Given (Other Intervention Used): Norvasc (amlodipine) 5 mg PO once tr6 Disposition Summary: 07/13/21 16:06 Discharge Ordered Location: Home anurag Problem: new anurag Symptoms: have improved anurag Condition: Stable anurag Diagnosis - Dental root caries anurag - Dental caries, unspecified anurag - Essential (primary) hypertension anurag Followup: anurag - With: Private Physician - When: 2 - 3 days - Reason: Recheck today's complaints, Continuance of care, Re-evaluation by your physician Followup: anurag - With: Alvaro Baca DDS - When: 2 - 3 days - Reason: Recheck today's complaints, Re-evaluation by your physician Discharge Instructions: - Discharge Summary Sheet anurag - Dental Caries, Adult anurag - Dental Pain anurag - Hypertension, Adult anurag - Hypertension, Adult, [id number] anurag - How to Take Your Blood Pressure, [id number] anurag - Diet and Dental Disease anurag - Managing Your Hypertension anurag - Dental Caries, Adult, [id number] anurag Forms: - Medication Reconciliation Form anurag - Thank You Letter anurag - Antibiotic Education anurag - Prescription Opioid Use [facility] Prescriptions: - acetaminophen-codeine 300-15 mg Oral tablet - take 2 tablet by ORAL route every 4-6 hours; 24 tablet; Refills: 0, Product anurag Selection Permitted - Norvasc 5 mg Oral Tablet - take 1 tablet by ORAL route once daily; 20 tablet; Refills: 0, Product anurag Selection Permitted - Motrin IB 200 mg Oral Tablet - take 2 tablet by ORAL route every 6 hours As needed as needed with food; 30 anurag tablet; Refills: 0, Product Selection Permitted Signatures: Dispatcher [employer] Favian Balderas MD MD cha Williams, Irene RN RN iw Sunni Dean RN RN tr6 Corrections: (The following items were deleted from the chart) 14:13 14:13 Home Meds: atorvastatin 20 mg Oral tab 1 tab once daily; iw
[2021-07-13] MEDS ORDERED: ONDANSETRON 4 MG/2 ML VIAL ONE (16:15)
[2021-07-13] MEDS ORDERED: MORPHINE 4 MG/ML SYR ONE (16:15)
[2021-07-13] MEDS ORDERED: HYDROCODONE/APAP 10/325 TAB ONE (16:21)
== END 2021-07-13 16:18 | disposition home or self-care (01) ==
LOC: ER 13:40
DX: K02.7 Dental root caries (principal); I10 Essential (primary) hypertension; I25.2 Old myocardial infarction; Z79.01 Long term (current) use of anticoagulants; Z79.82 Long term (current) use of aspirin
CPT/HCPCS: 85025; 80048; 36415; 83735; 85610; 80076; 84484; 83880; 70450; 71045; 96375; 96374; 99284; J2405

== ENCOUNTER 2021-11-14 13:34 | Emergency (ER) | payer OTHER | END 2021-11-14 15:08 | disposition left against medical advice (07) | LOC: ER 13:34 | DX: Z02.9 Encounter for administrative examinations, unspecified (principal) ==

== ENCOUNTER 2023-01-30 11:52 | Emergency (ER) | payer OTHER ==
--- NOTE | 2023-01-30 12:44 | RAD REPORT ---
EXAM DESCRIPTION: US - UPPER EXTREMITY VENOUS UNILATE - 01/30/2023 12:37 pm CLINICAL HISTORY: Pain;Swelling Arm pain and swelling COMPARISON: None FINDINGS: Left upper extremity venous system was interrogated with Doppler technique. Thrombus is pr esent in the left cephalic vein. Remainder of the upper extremity venous system is patent. IMPRESSION: Left cephalic vein thrombus.
--- NOTE | 2023-01-30 13:46 | ER ---
Nurse's Notes [facility] Name: Ashok Lopez Age: 77 yrs Sex: Male : 1945 Arrival Date: 01/30/2023 Time: 11:57 Bed IW1 Private MD: Diagnosis: Superficial vein thrombus - left cephalic vein Presentation: 01/30 12:06 Chief complaint: Left arm pain and swelling since yesterday. Had IV in same area 2 hb weeks ago. Coronavirus screen: At this time, the client does not indicate any symptoms associated with coronavirus-19. Ebola Screen: No symptoms or risks identified at this time. Initial Sepsis Screen: Does the patient meet any 2 criteria? No. Patient's initial sepsis screen is negative. Does the patient have a suspected source of infection? No. Patient's initial sepsis screen is negative. Risk Assessment: Do you want to hurt yourself or someone else? Patient reports no desire to harm self or others. Onset of symptoms was January 29, 2023. 12:06 Method Of Arrival: Ambulatory hb 12:06 Acuity: BELLA 4 hb Historical: - Allergies: 12:08 NKA; hb - PMHx: 12:08 Arthritis; angina pectoris; CVA; High Cholesterol; Hypertension; Myocardial infarction; hb Prostate Cancer; Schizophrenia; Vital Signs: 12:06 BP 130 / 46; Pulse 65; Resp 18; Pulse Ox 99% on R/A; Weight 83.91 kg; Height 5 ft. 5 hb in. ; Pain 7/10; 12:06 Body Mass Index 30.78 (83.91 kg, 165.1 cm) hb 12:06 Pain Scale: Adult hb ED Course: 11:57 Patient arrived in ED. mr 12:00 Brenda Tinoco FNP-C is PHCP. kb 12:00 Barry Lambert MD is Attending Physician. kb 12:08 Triage completed. hb 12:08 Arm band placed on. hb 12:38 UPPER EXTREMITY VENOUS UNILATE In Process Unspecified. EDMS Administered Medications: No medications were administered Outcome: 13:45 Discharge ordered by . roberto carlos Signatures: Dispatcher [employer] EDMS Brenda Tinoco FNP-C FNP-Ckb Rivera, Mary mr Hansa Gonzáles, RN RN hb
--- NOTE | 2023-01-30 13:46 | EDPHYS ---
Physician Documentation [facility] Name: Ashok Lopez Age: 77 yrs Sex: Male : 1945 Arrival Date: 01/30/2023 Time: 11:57 Bed IW1 Private MD: ED Physician Barry Lambert Historical: - Allergies: 01/30 12:08 NKA; hb - PMHx: 12:08 Arthritis; angina pectoris; CVA; High Cholesterol; Hypertension; Myocardial infarction; hb Prostate Cancer; Schizophrenia; ROS: 13:21 Constitutional: Negative for fever, chills, and weight loss. kb 13:21 MS/extremity: Positive for pain, swelling, of the dorsal aspect of left forearm. 13:21 All other systems are negative. Exam: 13:21 Constitutional: This is a well developed, well nourished patient who is awake, alert, kb and in no acute distress. Head/Face: Normocephalic, atraumatic. ENT: Moist Mucous membranes Cardiovascular: Regular rate and rhythm with a normal S1 and S2. No gallops, murmurs, or rubs. No pulse deficits. Respiratory: Respirations even and unlabored. No increased work of breathing. Talking in full sentences Abdomen/GI: Soft, non-tender. No distention Skin: Warm, dry with normal turgor. Normal color. Neuro: Awake and alert, GCS 15, oriented to person, place, time, and situation. Moves all extremities. Normal gait. Psych: Awake, alert, with orientation to person, place and time. Behavior, mood, and affect are within normal limits. 13:21 Musculoskeletal/extremity: Extremities: grossly normal except: noted in the dorsal aspect of left forearm: pain, swelling, ROM: intact in all extremities, Circulation is intact in all extremities. Sensation intact. Vital Signs: 12:06 BP 130 / 46; Pulse 65; Resp 18; Pulse Ox 99% on R/A; Weight 83.91 kg; Height 5 ft. 5 hb in. ; Pain 7/10; 12:06 Body Mass Index 30.78 (83.91 kg, 165.1 cm) hb 12:06 Pain Scale: Adult hb MDM: 12:06 Patient medically screened. kb 01/30 12:06 Order name: US Extremity Venous Unilateral Ltd kb 01/30 12:10 Order name: UPPER EXTREMITY VENOUS UNILATE; Complete Time: 12:47 EDMS Administered Medications: No medications were administered Disposition Summary: 01/30/23 13:45 Discharge Ordered Location: Home Condition: Stable kb Diagnosis - Superficial vein thrombus - left cephalic vein kb Followup: kb - With: Emergency Department - When: As needed - Reason: Worsening of condition Followup: kb - With: Private Physician - When: 2 - 3 days - Reason: Recheck today's complaints, Continuance of care, Re-evaluation by your physician Forms: - Medication Reconciliation Form kb - Thank You Letter kb - Antibiotic Education kb - Prescription Opioid Use kb Signatures: Dispatcher [employer] EDBrenda Dunbar, TAJ AHMADI-Hansa Healy, RN RN
[2023-01-30 13:57] VITALS: BP 130/46; O2SAT 99
== END 2023-01-30 13:53 | disposition home or self-care (01) ==
LOC: ER 11:52
DX: I82.612 Acute embolism and thrombosis of superficial veins of left upper extremity (principal)
CPT/HCPCS: 93971; 99282

== ENCOUNTER 2023-09-28 12:23 | Inpatient (IN) | payer OTHER ==
[2023-09-28 12:55] LABS: Absolute Lymphocytes (CBC) 1.5 K/uL (0.7-4.9); Hematocrit 43.4 % (39.6-49.0); Lymphocytes % 21.7 % (15.3-44.8); MCV 102.1 fL (80-100); MPV 8.2 fL (7.6-11.3); Platelets 176 thou/uL (152-406); RBC Red Blood Cell Count 4.25 M/uL (4.33-5.43)
[2023-09-28 13:14] LABS: Potassium 4.1 mEq/L (3.5-5.1); Troponin High Sensitivity 14.2 pg/mL (<58.9)
--- NOTE | 2023-09-28 13:24 | RAD REPORT ---
EXAM DESCRIPTION: RAD - Chest Single View - 09/28/2023 1:15 pm CLINICAL HISTORY: CHEST PAIN Chest pain. COMPARISON: Chest Single View dated 07/13/2021; Chest Single View dated 11/14/2020; Chest Single View dated 06/26/2018; Chest Single View dated 06/25/2018 FINDINGS: Portable technique limits examination quality. The lungs are grossly clear. The heart is upper limit of normal in size. No displaced fractures. IMPRESSION: No acute intrathoracic process suspected.
--- NOTE | 2023-09-28 14:04 | RAD REPORT ---
EXAM DESCRIPTION: CT - Chest For Pe Angio - 09/28/2023 1:54 pm CLINICAL HISTORY: Chest pain. SOB;Chest pain COMPARISON: No comparisons TECHNIQUE: CT angiogram of the pulmonary arteries was performed with MIP. All CT scans are performed using dose optimization technique as appropriate and may include automated exposure control or mA/KV adjustment according to patient size. FINDINGS: No evidence of pulmonary thromboembolism. No acute aortic finding demonstrated. Mild diffuse COPD with linear atelectasis in the medial left lung base. No significant pericardial or pleural fluid. No concerning bony finding. IMPRESSION: No evidence of pulmonary thromboembolism. Mild COPD.
[2023-09-28] MEDS ORDERED: lisinopriL 20 MG TAB ONE (14:15)
--- NOTE | 2023-09-28 14:28 | EDPHYS ---
Physician Documentation [facility] Name: Ashok Lopez Age: 78 yrs Sex: Male : 1945 Arrival Date: 09/28/2023 Time: 12:23 Bed 5 Private MD: ED Physician Prashant Suggs HPI: 09/28 14:43 This 78 yrs old Male presents to ER via Ambulatory with complaints of Chest Tightness, ms3 Shortness Of Breath. 14:43 78-year-old male with past medical history of angina pectoris, CVA, hypertension, ms3 myocardial infarction, prostate cancer, hyperlipidemia presents to the emergency department for near syncope. Patient states his symptoms began yesterday and he felt like he was going to and became lightheaded. Patient states his symptoms returned again today.. Historical: - Allergies: 12:42 NKA; ld1 - PMHx: 12:42 angina pectoris; CVA; Hypertension; Myocardial infarction; Prostate Cancer; High ld1 Cholesterol; Schizophrenia; Arthritis; - Immunization history:: Adult Immunizations up to date. - Social history:: Smoking status: Patient denies any tobacco usage or history of. ROS: 14:43 Constitutional: Negative for fever, and chills. Neck: Negative for injury, pain, and ms3 swelling, Cardiovascular: Negative for chest pain, and palpitations. Respiratory: Negative for shortness of breath, cough, wheezing, and pleuritic chest pain, Abdomen/GI: Negative for abdominal pain, nausea, vomiting, diarrhea, and constipation, MS/Extremity: Negative for injury and deformity, 14:43 Neuro: Positive for near syncope, Exam: 14:43 Constitutional: This is a well developed, well nourished patient who is awake, alert, ms3 and in no acute distress. Head/Face: Normocephalic, atraumatic. Neck: Trachea midline, no cervical lymphadenopathy. Supple, full range of motion without nuchal rigidity, or vertebral point tenderness. No Meningismus. Chest/axilla: Normal chest wall appearance and motion. Nontender with no deformity. Respiratory: Lungs have equal breath sounds bilaterally, clear to auscultation and percussion. No rales, rhonchi or wheezes noted. No increased work of breathing, no retractions or nasal flaring. Abdomen/GI: Soft, non-tender, with normal bowel sounds. No distension or tympany. No guarding or rebound. No evidence of tenderness throughout. Skin: Warm, dry with normal turgor. Normal color with no rashes, no lesions, and no evidence of cellulitis. 14:43 Cardiovascular: Rate: bradycardic, Rhythm: regular, Pulses: no pulse deficits are appreciated, Heart sounds: normal, normal S1and S2, 14:48 ECG was reviewed by the Attending Physician. ms3 Vital Signs: 12:30 BP 209 / 74; Pulse 48; Resp 18; Temp 98.4; Pulse Ox 100% on R/A; Weight 81.65 kg; hb Height 5 ft. 5 in. ; Pain 1/10; 12:42 BP 209 / 74; Pulse 52; Resp 17; Pulse Ox 100% on R/A; Pain 7/10; ld1 14:04 BP 206 / 74; Pulse 53; Resp 16; Pulse Ox 100% on R/A; Pain 0/10; mb9 14:35 BP 239 / 87; Pulse 50; Pulse Ox 100% on R/A; ld1 15:00 BP 196 / 73; Pulse 53; Resp 18; Pulse Ox 100% on R/A; mb9 15:16 BP 194 / 76; Pulse 48; ld1 15:31 BP 184 / 67; Pulse 52; Resp 18; Pulse Ox 100% on R/A; mb9 15:39 BP 170 / 60; mb9 17:51 BP 140 / 53; Pulse 54; Resp 16; Pulse Ox 100% on R/A; mb9 12:30 Body Mass Index 29.95 (81.65 kg, 165.1 cm) hb 12:30 Pain Scale: Adult hb 12:42 Pain Scale: Adult ld1 14:04 Pain Scale: Adult mb9 MDM: 13:06 Patient medically screened. ms3 14:43 Differential diagnosis: abnormal EKG, acute myocardial infarction, anxiety, coronary ms3 artery disease pulmonary embolus. Data reviewed: vital signs, nurses notes, lab test result(s), EKG, radiologic studies, and as a result, I will admit patient. Consideration of Admission/Observation Patient was admitted/placed on observation. Management of patient was discussed with the following: Hospitalist: Dr Huitron. I considered the following discharge prescriptions or medication management in the emergency department Medications were administered in the Emergency Department. See MAR. Independent interpretation of the following test(s) in the Emergency Department EKG: See my EKG interpretation above X-Ray: My interpretation is CXR reviewed by me does not show pulmonary edema. Care significantly affected by the following chronic conditions: Hypertension. Counseling: I had a detailed discussion with the patient and/or guardian regarding the historical points, exam findings, and any diagnostic results supporting the discharge/admit diagnosis, lab results, radiology results, the need for further work-up and treatment in the hospital. ED course: Discussed labs, EKG, chest x-ray, CT with patient and his . Patient with elevated blood pressure, hydralazine given. Discussed case with Dr. Herron and he accepts patient as observation. All questions were answered. 09/28 12:37 Order name: Basic Metabolic Panel; Complete Time: 14:00 ld1 09/28 12:37 Order name: CBC with Diff; Complete Time: 14:00 ld1 09/28 12:37 Order name: D-Dimer; Complete Time: 14:00 ld1 09/28 12:37 Order name: Troponin HS; Complete Time: 14:00 ld1 09/28 16:28 Order name: T4 Free EDMS 09/28 16:28 Order name: Thyroid Stimulating Hormone EDMS 09/28 16:28 Order name: Urinalysis w/ reflexes EDMS 09/28 16:28 Order name: Basic Metabolic Panel EDMS 09/28 16:28 Order name: Basic Metabolic Panel EDMS 09/28 16:28 Order name: Basic Metabolic Panel EDMS 09/28 16:28 Order name: Basic Metabolic Panel EDMS 09/28 16:28 Order name: CBC with Automated Diff EDMS 09/28 16:28 Order name: CBC with Automated Diff EDMS 09/28 16:28 Order name: CBC with Automated Diff EDMS 09/28 16:28 Order name: CBC with Automated Diff EDMS 09/28 16:28 Order name: Lipid Profile EDMS 09/28 16:28 Order name: Lipid Profile EDMS 09/28 16:28 Order name: Magnesium EDMS 09/28 16:28 Order name: Magnesium EDMS 09/28 16:28 Order name: Magnesium EDMS 09/28 16:28 Order name: Magnesium EDMS 09/28 16:28 Order name: Phosphorus EDMS 09/28 16:28 Order name: Phosphorus EDMS 09/28 16:28 Order name: Phosphorus EDMS 09/28 16:28 Order name: Phosphorus EDMS 09/28 12:37 Order name: XRAY Chest (1 view); Complete Time: 14:00 ld1 09/28 13:38 Order name: CT Chest For PE Angio; Complete Time: 14:12 ap3 09/28 15:22 Order name: Head C Spine Mpr Wo Con; Complete Time: 15:42 EDMS 09/28 12:37 Order name: EKG; Complete Time: 12:38 ld1 09/28 16:28 Order name: CONS Physician Consult EDMS 09/28 12:37 Order name: Cardiac monitoring; Complete Time: 12:37 ld1 09/28 12:37 Order name: EKG - Nurse/Tech; Complete Time: 12:37 ld1 09/28 12:37 Order name: IV Saline Lock; Complete Time: 12:48 ld1 09/28 12:37 Order name: Labs collected and sent; Complete Time: 12:48 ld1 09/28 12:37 Order name: O2 Per Protocol; Complete Time: 12:37 ld1 09/28 12:37 Order name: O2 Sat Monitoring; Complete Time: 12:37 ld1 EC:48 Rate is 53 beats/min. Rhythm is regular. QRS [place] is Normal. QRS interval is normal. ms3 Clinical impression: Sinus bradycardia. Interpreted by me. Reviewed by me. Administered Medications: 14:04 Drug: Lisinopril PO 40 mg PO once Route: PO; mb9 15:32 Follow up: Response: No adverse reaction mb9 14:41 Drug: hydrALAZINE IVP 10 mg IVP once Route: IVP; Site: left antecubital; mb9 15:32 Follow up: Response: No adverse reaction mb9 Disposition Summary: 09/28/23 14:28 Hospitalization Ordered Notes: Hospitalization Status: Observation ms3 Provider: Chavez Huitron ms3 Location: Telemetry/MedSurg (observation) ms3 Condition: Stable ms3 Problem: new ms3 Symptoms: are unchanged ms3 Bed/Room Type: Standard ms3 Room Assignment: 231(09/28/23 17:14) bd Diagnosis - Syncope Near ms3 - Essential (primary) hypertension ms3 Forms: - Medication Reconciliation Form ms3 - SBAR form ms3 - Leadership Thank You Letter ms3 Signatures: Dispatcher [employer] EDMS Shena Lockett bd Austen Diego MD MD rn Suggs, Prashant, DO ms3 Osiris Suggs RN RN ld1 Ramya Campbell RN RN mb9 Corrections: (The following items were deleted from the chart) 15:22 15:16 CT HEAD,C-SPINT W/O ordered. EDMS EDMS 17:14 14:28 ms3 bd
--- NOTE | 2023-09-28 14:28 | ER ---
Nurse's Notes [facility] Name: Ashok Lopez Age: 78 yrs Sex: Male : 1945 Arrival Date: 09/28/2023 Time: 12:23 Bed 5 Private MD: Diagnosis: Syncope Near;Essential (primary) hypertension Presentation: 09/28 12:30 Chief complaint: Patient states: "I had an episode yesterday and again this morning hb where I got dizzy x 500 and felt like I couldn't breathe and almost passed out. 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 Coronavirus screen: At this time, the client does not indicate any symptoms associated with coronavirus-19. Ebola Screen: No symptoms or risks identified at this time. Initial Sepsis Screen: Does the patient meet any 2 criteria? No. Patient's initial sepsis screen is negative. Does the patient have a suspected source of infection? No. Patient's initial sepsis screen is negative. Risk Assessment: Do you want to hurt yourself or someone else? Patient reports no desire to harm self or others. Onset of symptoms was September 27, 2023. 12:30 Method Of Arrival: Ambulatory hb 12:30 Acuity: BELLA 2 hb Historical: - Allergies: 12:42 NKA; ld1 - PMHx: 12:42 angina pectoris; CVA; Hypertension; Myocardial infarction; Prostate Cancer; High ld1 Cholesterol; Schizophrenia; Arthritis; - Immunization history:: Adult Immunizations up to date. - Social history:: Smoking status: Patient denies any tobacco usage or history of. Screenin:42 [facility] ED Fall Risk Assessment (Adult) History of falling in the last 3 months, ld1 including since admission No falls in past 3 months (0 pts). Abuse screen: Denies threats or abuse. Denies injuries from another. Nutritional screening: No deficits noted. Tuberculosis screening: No symptoms or risk factors identified. Assessment: 12:41 General: Appears in no apparent distress. comfortable, Behavior is calm, cooperative, ld1 appropriate for age. Pain: Complains of pain in chest Pain does not radiate. Pain currently is 7 out of 10 on a pain scale. Quality of pain is described as pressure, Pain began 2-3 days ago. Is intermittent. Neuro: Level of Consciousness is awake, alert, obeys commands, Oriented to person, place, time, situation. Cardiovascular: Capillary refill < 3 seconds Patient's skin is warm and dry. Rhythm is sinus bradycardia. Respiratory: Reports shortness of breath Airway is patent Respiratory effort is even, unlabored. GI: Abdomen is round non-distended. : No signs and/or symptoms were reported regarding the genitourinary system. EENT: No signs and/or symptoms were reported regarding the EENT system. Derm: No signs and/or symptoms reported regarding the dermatologic system. Musculoskeletal: No signs and/or symptoms reported regarding the musculoskeletal system. 14:05 Reassessment: Patient and/or family updated on plan of care and expected duration. Pain mb9 level reassessed. Patient is alert, oriented x 3, equal unlabored respirations, skin warm/dry/pink. Patient states feeling better. Patient states symptoms have improved. 14:05 Reassessment: ERP notified of pts BP of 206/74. New orders at this time. mb9 15:04 Reassessment: Patient and/or family updated on plan of care and expected duration. Pain mb9 level reassessed. Patient is alert, oriented x 3, equal unlabored respirations, skin warm/dry/pink. Patient denies pain at this time. 15:20 Reassessment: pt taken to CT via stretcher. mb9 16:45 Reassessment: No changes from previously documented assessment. Patient and/or family mb9 updated on plan of care and expected duration. Pain level reassessed. Patient is alert, oriented x 3, equal unlabored respirations, skin warm/dry/pink. 17:25 Reassessment: attempted to call report to admitting nurse Avelina. States she was not mb9 aware of getting pt and will call back. 17:50 Reassessment: Report given ARTURO Quan. mb9 17:51 Reassessment: See [facility] for further charting. mb9 Vital Signs: 12:30 BP 209 / 74; Pulse 48; Resp 18; Temp 98.4; Pulse Ox 100% on R/A; Weight 81.65 kg; hb Height 5 ft. 5 in. ; Pain 1/10; 12:42 BP 209 / 74; Pulse 52; Resp 17; Pulse Ox 100% on R/A; Pain 7/10; ld1 14:04 BP 206 / 74; Pulse 53; Resp 16; Pulse Ox 100% on R/A; Pain 0/10; mb9 14:35 BP 239 / 87; Pulse 50; Pulse Ox 100% on R/A; ld1 15:00 BP 196 / 73; Pulse 53; Resp 18; Pulse Ox 100% on R/A; mb9 15:16 BP 194 / 76; Pulse 48; ld1 15:31 BP 184 / 67; Pulse 52; Resp 18; Pulse Ox 100% on R/A; mb9 15:39 BP 170 / 60; mb9 17:51 BP 140 / 53; Pulse 54; Resp 16; Pulse Ox 100% on R/A; mb9 12:30 Body Mass Index 29.95 (81.65 kg, 165.1 cm) hb 12:30 Pain Scale: Adult hb 12:42 Pain Scale: Adult ld1 14:04 Pain Scale: Adult mb9 ED Course: 12:26 Patient arrived in ED. mr 12:31 Ramya Campbell RN is Primary Nurse. mb9 12:32 Arm band placed on. mb9 12:36 Prashant Suggs DO is Attending Physician. ms3 12:42 Patient has correct armband on for positive identification. Placed in gown. Bed in low ld1 position. Call light in reach. Side rails up X2. quality assurance monitor on. Pulse ox on. NIBP on. Door closed. Noise minimized. Warm blanket given. 12:42 No provider procedures requiring assistance completed. Patient maintains SpO2 ld1 saturation greater than 95% on room air. 12:48 Triage completed. hb 12:50 EKG done, by ED staff, reviewed by Prashant Suggs DO. Inserted saline lock: 20 gauge in mb9 left antecubital area, using aseptic technique. Blood collected. 12:51 Basic Metabolic Panel Sent. mb9 12:51 CBC with Diff Sent. mb9 12:51 D-Dimer Sent. mb9 12:51 Troponin HS Sent. mb9 13:13 X-ray completed. Portable x-ray completed in exam room. Patient tolerated procedure mh1 well. 13:17 XRAY Chest (1 view) In Process Unspecified. EDMS 13:56 CT Chest For PE Angio In Process Unspecified. EDMS 14:28 Chavez Huitron MD is Hospitalizing Provider. ms3 15:26 Head C Spine Mpr Wo Con In Process Unspecified. EDMS 17:51 Patient admitted, IV remains in place. mb9 Administered Medications: 14:04 Drug: Lisinopril PO 40 mg PO once Route: PO; mb9 15:32 Follow up: Response: No adverse reaction 9 14:41 Drug: hydrALAZINE IVP 10 mg IVP once Route: IVP; Site: left antecubital; [id number] 15:32 Follow up: Response: No adverse reaction lori Medication: 12:42 VIS not applicable for this client. ld1 Outcome: 14:28 Decision to Hospitalize by Provider. ms3 17:51 Admitted to Med/surg accompanied by tech, via wheelchair, room 231, Report called to lori Quan RN 17:51 Condition: stable 18:07 Patient left the ED. ap3 Signatures: Dispatcher [employer] EDIL OquendoRamya, Reg Reg Anh Jalloh 1 Hansa Gonzáles, RN ARTURO Paloma Apodaca RN RN ap3 Prashant Suggs DO DO ms3 Osiris Suggs RN RN ld1 Ramya Campbell, RN RN mb9
[2023-09-28] MEDS ORDERED: HYDRALAZINE HCL 20 MG/ML VIAL ONE ×2 (14:49→17:17)
--- NOTE | 2023-09-28 15:38 | RAD REPORT ---
EXAM DESCRIPTION: CT - [id number] - 09/28/2023 3:24 pm CLINICAL HISTORY: Trauma, head and neck injury. Seizures, Dizziness, recent ENT surgery, COMPARISON: Head C Spine Mpr Wo Con dated 12/20/2017; Chest For Pe Angio dated 09/28/2023 TECHNIQUE: Axial 5 mm thick images of the head were obtained. Axial 2 mm thick images of the cervical spine were obtained with sagittal and coronal reconstruction images generated and reviewed. All CT scans are performed using dose optimization technique as appropriate and may include automated exposure control or mA/KV adjustment according to patient size. FINDINGS: CT HEAD WITHOUT CONTRAST: Recent CT examination with contrast has been performed with mild intravascular contrast apparent on t his study. No acute hemorrhage, hydrocephalus or extra-axial collection is identified.Moderate diffus e brain atrophy.No areas of brain edema or midline shift. The paranasal sinuses and mastoids are clear.The calvarium is intact. CT CERVICAL SPINE WITHOUT CONTRAST: No fracture or subluxation.Upper cervical degenerative changes are present, most notable at C3-4.No p revertebral soft tissues swelling is identified. IMPRESSION: No acute intracranial or cervical spine findings.
[2023-09-28] MEDS ORDERED: ACETAMINOPHEN 500 MG TAB PO PRN (16:22)
[2023-09-28] MEDS ORDERED: MAGNESIUM HYDROXIDE 8% 30 ML PO PRN (16:22)
--- NOTE | 2023-09-28 16:41 | P.HP ---
Certification for Inpatient Patient admitted to: Inpatient With expected LOS: <2 Midnights Patient will require the following post-hospital care: None Practitioner: I am a practitioner with admitting privileges, knowledge of patient current condition, hospital course, and medical plan of care. Services: Services provided to patient in accordance with Admission requirements found in Title 42 Section 412.3 of the Code of Federal Regulations Patient History Date of Service: 09/28/23 History of Present Illness: Mr. Pina, a 78-year-old male patient with a medical history of CVA, hypertension, myocardial infarction, hyperlipidemia, schizophrenia, arthritis presented to the emergency room with complaints of dizziness. Patient reports the symptoms started this morning, he felt like he is losing control, and afraid of sleeping that he would not wake up. Patient denies chest pain, shortness of breath, chest discomfort. Patient denies fever chills or loss of weight. Patient reports that he missed his blood pressure medication lisinopril 40 mg this morning. Patient reports that he had seizures like activity 2 times today. Patient denies headache, dizziness or nausea at this time. Patient's spouse helping with the history. ED course Vital signs 209/79, pulse of 48, respiration 18, temperature 98.4, pulse ox 100% on room air Patient was listening of pleural 40 mg p.o. x1, hydralazine 20 mg IV x1 in the ER Laboratory reports significant for elevated the dimer 2011. All the other labs are within normal limits. Chest x-ray, CTPA, CT head and neck are nonsignificant. Admitting the patient with a diagnosis of near syncope, uncontrolled hypertension, and seizures. 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 He is retired. - Family History Mother -: Other (see notes) Brother -: Other (see notes) - Social History Alcohol use: No CD- Drugs: No Caffeine use: Yes Review of Systems 10-point ROS is otherwise unremarkable Physical Examination - Physical Exam General: Alert, Oriented x3 HEENT: Atraumatic, Normocephalic, PERRLA Neck: Supple, JVD not distended Respiratory: Clear to auscultation bilaterally, Normal air movement Cardiovascular: No edema, Normal pulses, Normal S1 S2, Other (Sinus bradycardia) Capillary refill: <2 Seconds Gastrointestinal: Normal bowel sounds, Non-distended Musculoskeletal: No clubbing, No swelling, No contractures, No erythema Integumentary: No rashes, Other (Big scar surgical scar on the face extending from the nose to the forehead) Neurological: Normal speech, Normal affect - Studies Laboratory Data (last 24 hrs) 09/28/23 09/28/23 12:48 12:48 WBC 6.90 Hgb 15.0 Hct 43.4 Plt Count 176 Sodium 139 Potassium 4.1 BUN 13 Creatinine 1.26 Glucose 93 Assessment and Plan - Problems (Diagnosis) (1) Syncope Current Visit: Yes Status: Acute Plan: Acute, patient came in with complaints of feeling like lost since this morning Heart rate fluctuating between 40 to 50/min Blood pressure maintained Admission to telemetry Close monitoring Qualifiers: Syncope type: unspecified Qualified Code(s): R55 - Syncope and collapse (2) Seizures Current Visit: Yes Status: Acute Plan: Acute, patient came with complaints of dizziness and near syncope syncope Patient had 2 seizures in the hospital CT head and neck 09/28/[address] Akers Keppra 1 g IV bolus followed by Keppra 500 mg p.o. twice daily started Continue to monitor (3) Coronary artery disease Onset Date: 11/13/16 Current Visit: No Status: Chronic Plan: Acute, controlled on aspirin 81 mg p.o. daily History of myocardial infarction and cardiac stent x4 Continue to monitor resume all the home medications Qualifiers: Coronary Disease-Associated Artery/Lesion type: unspecified vessel or lesion type [place] vs. transplanted heart: unspecified whether [place] or transplanted heart Associated angina: without angina Qualified Code(s): I25.10 - Atherosclerotic heart disease of [place] coronary artery without angina pectoris (4) Hyperlipidemia Current Visit: No Status: Chronic Plan: Chronic controlled on statin Continue current home medication Low-fat low-cholesterol diet Check lipid panel in the morning Qualifiers: Hyperlipidemia type: mixed hyperlipidemia Qualified Code(s): E78.2 - Mixed hyperlipidemia (5) Hypertension Onset Date: 11/13/16 Current Visit: No Status: Chronic Plan: Chronic, uncontrolled on lisinopril 40 mg p.o. daily Patient reports he did not take his medicine today Lisinopril 40 mg p.o. x1 given in the ER, pressure continued to be systolic above 200 mmHg Hydralazine 20 mg IV x1 given Resume home medicationa Hydralazine 10 mg IV every 4 hours as needed ordered Close monitoring of vital signs Qualifiers: Hypertension type: unspecified Qualified Code(s): I10 - Essential (primary) hypertension Discharge Plan: Home Plan to discharge in: 48 Hours - Advance Directives Does patient have a Living Will: Yes Does patient have a Durable POA for Healthcare: Yes - Code Status/Comfort Care Code Status Assessed: Yes (Full code) Code Status: Full Code Physician Review: Patient Assessed, Agree with Above Assessment and Plan Critical Care: No Time Spent Managing Pts Care (In Minutes): 55 (Minutes)
[2023-09-28] MEDS: HEPARIN 5000 UNIT/ML 1 ML VIAL SQ SCH ×2 (16:59→17:00)
[2023-09-28 17:01] VITALS: BMI 29.9
[2023-09-28] MEDS ORDERED: HEPARIN 5000 UNIT/ML 1 ML VIAL ONE (17:06)
[2023-09-28] MEDS: HYDRALAZINE HCL 20 MG/ML VIAL IV PRN (17:08)
[2023-09-28 17:16] LABS: Specific Gravity > 1.030 (1.005-1.030); Urine Bilirubin NEGATIVE (Negative); Urine Blood Negative (Negative); Urine Clarity Clear (Clear); Urine Color Light-Yellow (Yellow); Urine Glucose NEGATIVE (Negative); Urine Protein NEGATIVE (Negative); Urine Urobilinogen Normal (Normal); Urine pH 7.5 (5.0-7.0)
[2023-09-28] MEDS ORDERED: levETIRAcetam 1,000 MG in NA CHLORIDE 0.9% 100 ML IV ONE ×2 (17:30→20:00)
[2023-09-28 17:33] LABS: Thyroid Stimulating Hormone 1.09 uIU/mL (0.358-3.740)
[2023-09-28] MEDS ORDERED: LEVETIRACETAM 500 MG/5 ML VIAL IV ONE (17:42)
[2023-09-29] MEDS: HEPARIN 5000 UNIT/ML 1 ML VIAL SQ SCH ×3 (00:17→17:41)
[2023-09-29 03:30] LABS: Magnesium 2.3 mg/dL (1.6-2.4); Potassium 3.9 mEq/L (3.5-5.1)
[2023-09-29 03:32] LABS: Phosphorus 2.9 mg/dL (2.5-4.9)
[2023-09-29 04:01] LABS: Absolute Lymphocytes (CBC) 1.7 K/uL (0.7-4.9); Hematocrit 37.8 % (39.6-49.0); Lymphocytes % 27.3 % (15.3-44.8); MCV 101.1 fL (80-100); MPV 8.6 fL (7.6-11.3); Platelets 178 thou/uL (152-406); RBC Red Blood Cell Count 3.74 M/uL (4.33-5.43)
[2023-09-29] MEDS ORDERED: POTASSIUM CL SA 10 MEQ TAB PO ONE (06:00)
[2023-09-29] MEDS: levETIRAcetam 500 MG TAB PO SCH ×2 (09:00→20:45)
[2023-09-29] MEDS: HYDRALAZINE HCL 20 MG/ML VIAL IV PRN (09:24)
--- NOTE | 2023-09-29 12:46 | P.PN ---
Subjective Date of Service: 09/29/23 Subjective: No new changes, Improving, Doing well Patient is alert and orientedx3 Denies any complaints Denies SOB or pain No acute distress noticed vitals stable History of Present Illness: Mr. Pina, a 78-year-old male patient with a medical history of CVA, hypertension, myocardial infarction, hyperlipidemia, schizophrenia, arthritis presented to the emergency room with complaints of dizziness. Patient reports the symptoms started this morning, he felt like he is losing control, and afraid of sleeping that he would not wake up. Patient denies chest pain, shortness of breath, chest discomfort. Patient denies fever chills or loss of weight. Patient reports that he missed his blood pressure medication lisinopril 40 mg this morning. Patient reports that he had seizures like activity 2 times today. Patient denies headache, dizziness or nausea at this time. Patient's spouse helping with the history. ED course Vital signs 209/79, pulse of 48, respiration 18, temperature 98.4, pulse ox 100% on room air Patient was listening of pleural 40 mg p.o. x1, hydralazine 20 mg IV x1 in the ER Laboratory reports significant for elevated the dimer 2010. All the other labs are within normal limits. Chest x-ray, CTPA, CT head and neck are nonsignificant. Admitting the patient with a diagnosis of near syncope, uncontrolled hypertension, and seizures. Review of Systems 10-point ROS is otherwise unremarkable Physical Examination - Vital Signs Temperature: 98.3 F Blood Pressure: 145/60 Pulse: 50 Respirations: 18 Pulse Ox (%): 97 - Physical Exam General: Alert, Oriented x3 HEENT: Atraumatic, Normocephalic Neck: Supple, 2+ carotid pulse no bruit Respiratory: Clear to auscultation bilaterally, Diminished Cardiovascular: No edema, Normal pulses Capillary refill: <2 Seconds Gastrointestinal: Normal bowel sounds, Soft and benign Musculoskeletal: No clubbing, No swelling Integumentary: No rashes, No breakdown Neurological: Normal gait, Normal speech, Normal strength at 5/5 x4 extr - Studies Laboratory Data (last 24 hrs) 09/28/23 09/28/23 12:48 12:48 WBC 6.90 Hgb 15.0 Hct 43.4 Plt Count 176 Sodium 139 Potassium 4.1 BUN 13 Creatinine 1.26 Glucose 93 Assessment And Plan - Current Problems (Diagnosis) (1) Syncope Current Visit: Yes Status: Acute Plan: Acute, Improving. denies in with complaints of feeling like lost since this morning Heart rate fluctuating between 40 to 50/min Blood pressure maintained Admission to telemetry Close monitoring Qualifiers: Syncope type: unspecified Qualified Code(s): R55 - Syncope and collapse (2) Seizures Current Visit: Yes Status: Acute Plan: Acute, patient came with complaints of dizziness and near syncope syncope Symptom fee now, no seizures since yesterday Patient had 2 seizures in the hospital yesterday. CT head and neck 09/28/[address] Akers Patient refused Keppra Continue to monitor (3) Coronary artery disease Onset Date: 11/13/16 Current Visit: No Status: Chronic Plan: Acute, controlled on aspirin 81 mg p.o. daily History of myocardial infarction and cardiac stent x4 Continue to monitor resume all the home medications Qualifiers: Coronary Disease-Associated Artery/Lesion type: unspecified vessel or lesion type [place] vs. transplanted heart: unspecified whether [place] or transplanted heart Associated angina: without angina Qualified Code(s): I25.10 - Atherosclerotic heart disease of [place] coronary artery without angina pectoris (4) Hyperlipidemia Current Visit: No Status: Chronic Plan: Chronic controlled on statin Continue current home medication Low-fat low-cholesterol diet Check lipid panel in the morning Qualifiers: Hyperlipidemia type: mixed hyperlipidemia Qualified Code(s): E78.2 - Mixed hyperlipidemia (5) Hypertension Onset Date: 11/13/16 Current Visit: No Status: Chronic Plan: Chronic, controlled on lisinopril 40 mg p.o. daily Patient reports he did not take his medicine today Resume home medications Hydralazine 10 mg IV every 4 hours as needed ordered Close monitoring of vital signs Qualifiers: Hypertension type: primary hypertension Qualified Code(s): I10 - Essential (primary) hypertension Discharge Plan: Home Plan to discharge in: 24 Hours - Code Status/Comfort Care Code Status Assessed: Yes (full dose) Code Status: Full Code Physician Review: Patient Assessed, Agree with Above Assessment and Plan Critical Care: No Time Spent Managing PTS Care (In Minutes): 35 (minutes)
[2023-09-30] MEDS: HEPARIN 5000 UNIT/ML 1 ML VIAL SQ SCH ×3 (00:10→16:24)
[2023-09-30 02:54] LABS: Absolute Lymphocytes (CBC) 1.6 K/uL (0.7-4.9); Hematocrit 38.9 % (39.6-49.0); Lymphocytes % 28.5 % (15.3-44.8); MCV 101.8 fL (80-100); MPV 8.1 fL (7.6-11.3); Platelets 185 thou/uL (152-406); RBC Red Blood Cell Count 3.82 M/uL (4.33-5.43)
[2023-09-30 03:10] LABS: Magnesium 2.5 mg/dL (1.6-2.4); Phosphorus 3.1 mg/dL (2.5-4.9); Potassium 3.8 mEq/L (3.5-5.1)
[2023-09-30] MEDS: levETIRAcetam 500 MG TAB PO SCH ×2 (09:00→21:00)
[2023-09-30] MEDS ORDERED: HOME MED 1 EA UNK (Lisinopril [Lisinopril] 40 MG Tablet) PO SCH (09:00)
[2023-09-30] MEDS ORDERED: POTASSIUM CL SA 10 MEQ TAB PO ONE (09:00)
[2023-09-30] MEDS: CLOPIDOGREL 75 MG TABLET PO SCH (09:51)
[2023-09-30] MEDS: ASPIRIN 81 MG CHEWABLE TABLET PO SCH (09:51)
[2023-09-30] MEDS: lisinopriL 20 MG TAB PO SCH (09:51)
[2023-09-30] MEDS: PANTOPRAZOLE 40MG TABLET PO SCH (09:51)
--- NOTE | 2023-09-30 15:31 | RAD REPORT ---
EXAM DESCRIPTION: - CP - 09/30/2023 2:01 pm CLINICAL HISTORY: syncope COMPARISON: Head C Spine Mpr Wo Con dated 09/28/2023 TECHNIQUE: Real-time sonographic evaluation of both carotid systems was performed. Doppler interroga tion was performed with waveform tracing bilaterally. FINDINGS: Elevated peak systolic velocity in the left external carotid artery measuring 160 cm/secon d. The right ECA is unremarkable. The common carotid arteries and internal carotid arteries show norm al low resistance waveforms. Mixed plaque is present at both carotid bifurcations. Peak systolic and end diastolic velocity values and the ICA/CCA ratios are in the non-hemodynamically significant range. Antegrade flow seen in both vertebral arteries. IMPRESSION: No hemodynamically significant stenosis in either the bilateral common carotid arteries or internal carotid arteries. Moderate left external carotid artery stenosis. Mild hard and soft plaque at the carotid bifurcations.
[2023-09-30] MEDS: HYDRALAZINE HCL 20 MG/ML VIAL IV PRN (16:24)
--- NOTE | 2023-09-30 17:29 | EKG ---
Test Date: 2023-09-28 Test Time: 12:37:32 Mental Health Consultant: MB MEASUREMENT RESULTS: Intervals: Rate: 53 NH: 170 QRSD: 86 QT: 436 QTc: 409 [place]: P: 59 NH: 170 QRS: 40 T: 27 INTERPRETIVE STATEMENTS: Sinus bradycardia Possible Anterior infarct, age undetermined Abnormal ECG Compared to ECG 11/14/2020 18:05:54 Myocardial infarct finding now present Electronically Signed On 09-30-23 17:23:15 TURBO OPERATOR by Noble Moreno
[2023-10-01] MEDS: HEPARIN 5000 UNIT/ML 1 ML VIAL SQ SCH ×2 (01:10→10:32)
[2023-10-01 02:10] LABS: Absolute Lymphocytes (CBC) 1.8 K/uL (0.7-4.9); Hematocrit 38.9 % (39.6-49.0); Lymphocytes % 31.4 % (15.3-44.8); MCV 101.7 fL (80-100); MPV 8.6 fL (7.6-11.3); Platelets 183 thou/uL (152-406); RBC Red Blood Cell Count 3.83 M/uL (4.33-5.43)
[2023-10-01 02:27] LABS: Magnesium 2.4 mg/dL (1.6-2.4); Phosphorus 3.1 mg/dL (2.5-4.9); Potassium 4.2 mEq/L (3.5-5.1)
[2023-10-01 10:29] VITALS: TEMP 97.5
[2023-10-01] MEDS: CLOPIDOGREL 75 MG TABLET PO SCH (10:31)
[2023-10-01] MEDS: PANTOPRAZOLE 40MG TABLET PO SCH (10:31)
[2023-10-01] MEDS: levETIRAcetam 500 MG TAB PO SCH (10:31)
[2023-10-01] MEDS: ASPIRIN 81 MG CHEWABLE TABLET PO SCH (10:31)
[2023-10-01] MEDS: lisinopriL 20 MG TAB PO SCH (10:32)
--- NOTE | 2023-10-01 11:25 | ECHO ---
HEIGHT: 5 ft 5 in WEIGHT: 180 lb 0 oz DATE OF STUDY: 10/01/[address]: Chavez Huitron MD 2-DIMENSIONAL: YES M.MODE: YES DOPPLER: YES COLOR FLOW: YES TDS: PORTABLE: YES DEFINITY: BUBBLE STUDY: DIAGNOSIS: SYNCOPE CARDIAC HISTORY: CATHERIZATION: YES SURGERY: NO PROSTHETIC VALVE: NO PACEMAKER: NO MEASUREMENTS (cm) DIASTOLIC (NORMALS) SYSTOLIC (NORMALS) IVSd 1.2 (0.6-1.2) LA Diam 2.9 (1.9-4.0) LVEF 55-60% LVIDd 3.8 (3.5-5.7) LVIDs 2.9 (2.0-3.5) %FS 25% LVPWd 1.3 (0.6-1.2) Ao Diam 2.9 (2.0-3.7) 2 DIMENSIONAL ASSESSMENT: RIGHT ATRIUM: NORMAL LEFT ATRIUM: NORMAL RIGHT VENTRICLE: NORMAL LEFT VENTRICLE: NORMAL TRICUSPID VALVE: NORMAL MITRAL VALVE: NORMAL PULMONIC VALVE: NORMAL AORTIC VALVE: NORMAL PERICARDIAL EFFUSION: NONE AORTIC ROOT: NORMAL LEFT VENTRICULAR WALL MOTION: NORMAL DOPPLER/COLOR FLOW: MILD AORTIC INSUFFICIENCY COMMENTS: 1. NORMAL LEFT VENTRICULAR EJECTION FRACTION 55-60% WITH NORMAL WALL MOTION 2. GRADE I DIASTOLIC DYSFUNCTION 3. MILD AORTIC INSUFFICIENCY TECHNOLOGIST: MADONNA ZAVALA
[2023-10-01 13:20] VITALS: O2SAT 97
[2023-10-01 13:22] VITALS: BP 136/63
== END 2023-10-01 15:26 | disposition home or self-care (01) | DRG 101 ==
LOC: ER 12:23 → ERHOLD 16:20 → 2ND 17:51
PROVIDERS: ADMIT Hospitalist; ATTEND Hospitalist
DX: R56.9 Unspecified convulsions (principal); R55 Syncope and collapse; I10 Essential (primary) hypertension; E78.2 Mixed hyperlipidemia; M19.90 Unspecified osteoarthritis, unspecified site; I25.10 Atherosclerotic heart disease of native coronary artery without angina pectoris; I25.2 Old myocardial infarction; Z95.5 Presence of coronary angioplasty implant and graft; Z90.49 Acquired absence of other specified parts of digestive tract; Z85.46 Personal history of malignant neoplasm of prostate; Z86.73 Personal history of transient ischemic attack (TIA), and cerebral infarction without residual deficits; Z96.651 Presence of right artificial knee joint; Z79.899 Other long term (current) drug therapy
CPT/HCPCS: 36415; 70450; 71045; 71275; 72125; 80048; 80061; 81003; 83735; 84100; 84439; 84443; 84484; 85025; 85379; 93005; 93306; 93880; 94760; 96374; 99285; J0360; J1644; J1953; Q9967

== ENCOUNTER 2025-01-28 13:16 | Inpatient (IN) | payer OTHER ==
[2025-01-28 13:59] LABS: Absolute Basophils 0.1 K/uL (0-0.5); Absolute Eosinophils 0.1 K/uL (0-0.5); Absolute Lymphocytes (CBC) 1.8 K/uL (0.7-4.9); Absolute Monocytes 0.6 K/uL (0.1-1.3); Absolute Neutrophil 5.7 K/uL (1.8-8.0); Basophils % 0.6 % (0-1.3); Eosinophils % 1.6 % (0-4.4); Hematocrit 45.5 % (39.6-49.0); Hemoglobin 16.2 g/dL (13.6-17.9); Lymphocytes % 22.2 % (15.3-44.8); MCH 35.5 pg (27.0-35.0); MCHC 35.6 g/dL (32.0-36.0); MCV 99.9 fL (80-100); MPV 8.8 fL (7.6-11.3); Monocytes % 6.7 % (3.3-12.3); Neutrophils % 68.9 % (41.7-73.7); Platelets 170 thou/uL (152-406); RBC Red Blood Cell Count 4.55 M/uL (4.33-5.43); Red Cell Distribution Width 13.5 % (12.1-15.2)
[2025-01-28] MEDS ORDERED: NA CHLORIDE 0.9% 1,000 ML ONE (14:05)
[2025-01-28 14:15] LABS: Albumin 3.4 g/dL (3.4-5.0); Albumin/Globulin Ratio 0.8 (1.1-1.8); Anion Gap 9.9 mEq/L (5.0-15.0); Bilirubin Direct 0.3 mg/dL (0-0.2); Bilirubin Indirect, Calculated 1.5 mg/dL (0.2-0.8); Bilirubin Total 1.8 mg/dL (0.2-1.0); Globulin 4.2 g/dL (2.3-3.5); Magnesium 2.2 mg/dL (1.6-2.4); Potassium 3.9 mEq/L (3.5-5.1); Protein, Total 7.6 g/dL (6.4-8.2); Troponin High Sensitivity 17.4 pg/mL (<58.9)
--- NOTE | 2025-01-28 14:36 | RAD REPORT ---
EXAMINATION: ONE VIEW CHEST XR CLINICAL INDICATION: hypotension TECHNIQUE: Frontal chest projection is submitted. Examination is limited by patient positioning and t echnique. COMPARISON: 09/28/2023 FINDINGS: The lungs are well inflated and clear. The heart is upper limit of normal in size. No displaced fract ures identified. Loop recorder. IMPRESSION: No acute intrathoracic abnormalities.
[2025-01-28 15:48] LABS: Specific Gravity 1.022 (1.005-1.030); Sqamous Epithelial <5 /HPF (None Seen); Urine Bacteria None Seen /HPF (<20); Urine Bilirubin NEGATIVE (Negative); Urine Blood Negative (Negative); Urine Clarity Extremely Turbid (Clear); Urine Color Yellow (Yellow); Urine Crystals Unidentified Few /HPF (None Seen); Urine Culture Reflex Order NOT NEEDED; Urine Glucose NEGATIVE (Negative); Urine Ketones NEGATIVE (Negative); Urine Micro Reflex YN NO BILL MICROSCOPIC; Urine Mucus 1+ /HPF (None Seen); Urine Nitrite NEGATIVE (Negative); Urine Protein 1+ (Negative); Urine RBC <5 /HPF (None Seen); Urine Urobilinogen 1+ (Normal); Urine WBC Clump Occasional /HPF (None Seen); Urine Yeast (Budding) Trace /HPF (None Seen)
--- NOTE | 2025-01-28 17:10 | ER ---
Nurse's Notes [facility] Name: Ashok Lopez Age: 79 yrs Sex: Male : 1945 Arrival Date: 01/28/2025 Time: 13:16 Bed 5 Private MD: Diagnosis: Orthostatic hypotension;Acute kidney injury Presentation: 01/28 13:19 Coronavirus screen: At this time, the client does not indicate any symptoms associated aa5 with coronavirus-19. Ebola Screen: Patient denies travel to an Ebola-affected area in the 21 days before illness onset. Initial Sepsis Screen: Does the patient meet any 2 criteria? No. Patient's initial sepsis screen is negative. Does the patient have a suspected source of infection? No. Patient's initial sepsis screen is negative. Risk Assessment: Do you want to hurt yourself or someone else? Patient reports no desire to harm self or others. Onset of symptoms was January 2025. 13:19 Acuity: BELLA 2 aa5 13:19 Method Of Arrival: Wheelchair aa5 13:19 Chief complaint: Patient states: "my blood pressure has been low at home". Reports aa5 systolic BP at home 70s-60s. Pt also c/o feeling lightheaded x 2 days. Historical: - Allergies: 13:26 NKA; aa5 - PMHx: 13:26 angina pectoris; Arthritis; CVA; High Cholesterol; Hypertension; Myocardial infarction; aa5 Prostate Cancer; Schizophrenia; Cancer (Unknown); - PSHx: 13:26 Nose reconstruction (Unknown); Carotid sx (Schizophrenia); aa5 - Immunization history:: Adult Immunizations unknown. - Infectious Disease History:: Denies. - Social history:: Smoking status: Patient reports the use of cigarette tobacco products. - Family history:: not pertinent. Screenin:19 [facility] ED Fall Risk Assessment (Adult) History of falling in the last 3 months, cm10 including since admission No falls in past 3 months (0 pts) Confusion or Disorientation No (0 pts) Intoxicated or Sedated No (0 pts) Impaired Gait Yes (1 pt) Mobility Assist Device Used No (0 pt) Altered Elimination No (0 pt) Score/Fall Risk Level 0 - 2 = Low Risk Oriented to surroundings, Maintained a safe environment, Hourly rounding (assess needs \\T\\ fall precautionary measures) done. Abuse screen: Denies threats or abuse. Denies injuries from another. Nutritional screening: No deficits noted. Tuberculosis screening: No symptoms or risk factors identified. Assessment: 14:17 General: Appears in no apparent distress. comfortable, Behavior is calm, cooperative, cm10 appropriate for age. Pain: Denies pain. Neuro: Level of Consciousness is awake, alert, obeys commands, Oriented to person, place, time, situation, Appropriate for age Reports dizziness. Cardiovascular: No deficits noted. Heart tones present Rhythm is sinus bradycardia. Respiratory: No deficits noted. Airway is patent Respiratory effort is even, unlabored, Respiratory pattern is regular, symmetrical, Breath sounds are clear bilaterally. Derm: Skin is pink, warm \\T\\ dry. 15:41 Reassessment: Patient appears in no apparent distress at this time. Patient and/or cm10 family updated on plan of care and expected duration. Pain level reassessed. Patient is alert, oriented x 3, equal unlabored respirations, skin warm/dry/pink. 16:53 Reassessment: Pt provided with food at this time. cm10 18:30 Reassessment: Patient appears in no apparent distress at this time. Patient and/or cm10 family updated on plan of care and expected duration. Pain level reassessed. Patient is alert, oriented x 3, equal unlabored respirations, skin warm/dry/pink. Vital Signs: 13:19 BP 104 / 50; Pulse 51; Resp 18 S; Temp 97.2(TE); Pulse Ox 98% on R/A; Weight 83.91 kg aa5 (R); Height 5 ft. 5 in. (R); 13:43 BP 133 / 54 Supine; Pulse 45; cm10 13:45 BP 105 / 50 Sitting; Pulse 46; cm10 13:47 BP 93 / 54 Standing; Pulse 48; cm10 14:14 BP 102 / 80; Pulse 45; Resp 16; Pulse Ox 96% ; cm10 14:30 BP 104 / 37; Pulse 41; Resp 15; Pulse Ox 95% ; cm10 15:00 BP 131 / 43; Pulse 41; Resp 15; Pulse Ox 96% ; cm10 15:30 BP 115 / 58; Pulse 40; Resp 15; Pulse Ox 95% ; cm10 16:00 BP 155 / 74; Pulse 41; Resp 15; Pulse Ox 96% ; cm10 17:00 BP 134 / 54; Pulse 48; Resp 14; Pulse Ox 96% ; cm10 18:00 BP 130 / 50; Pulse 43; cm10 19:00 BP 143 / 60; Pulse 45; Resp 13; Pulse Ox 96% on R/A; cm10 19:30 BP 145 / 60; Pulse 44; Resp 15; Pulse Ox 95% ; cm10 13:19 Body Mass Index 30.79 (83.91 kg, 165.1 cm) aa5 ED Course: 13:19 Patient arrived in ED. ty 13:19 Arm band placed on Patient placed in an exam room, on a stretcher. aa5 13:22 Barry Lambert MD is Attending Physician. rt 13:25 Triage completed. aa5 13:45 Yue Farmer, ARTURO is Primary Nurse. cm10 13:54 Basic Metabolic Panel Sent. cm10 13:54 CBC with Diff Sent. cm10 13:54 LFT's Sent. cm10 13:54 Magnesium Sent. cm10 13:54 Troponin HS Sent. cm10 13:54 Missed attempt(s): 20 gauge in right wrist. forearm. antecubital area. Bleeding cm10 controlled, band aid applied, catheter tip intact. 14:10 Inserted saline lock: 22 gauge in left forearm, using aseptic technique. Flushed with hb 10 mL NS. 14:15 XRAY Chest (1 view) In Process Unspecified. EDMS 14:20 Patient has correct armband on for positive identification. Placed in gown. Bed in low cm10 position. Call light in reach. Side rails up X2. Client placed on continuous cardiac and pulse oximetry monitoring. NIBP monitoring applied. planner/scheduler on. 17:09 Ashok Ayoub MD is Hospitalizing Provider. rt 18:21 Report faxed, no answer when called for confirmation. cm10 20:09 Provided Education on: ER process and procedurs/. cm10 20:09 No provider procedures requiring assistance completed. Patient admitted, IV remains in cm10 place. Administered Medications: 14:21 Drug: NS 0.9% IV 1000 ml IV at 1000 ml once; to be given as a bolus over 60 minutes cm10 Route: IV; Rate: 1000 ml; Site: left forearm; 15:21 Follow up: Response: No adverse reaction; IV Status: Completed infusion; IV Intake: cm10 1000ml Medication: 14:19 VIS not applicable for this client. cm10 Intake: 15:21 IV: 1000ml; Total: 1000ml. cm10 Outcome: 17:10 Decision to Hospitalize by Provider. rt 20:08 Admitted to Med/surg accompanied by tech, via stretcher, cm10 20:08 Condition: good 20:08 Instructed on the need for admit, 20:09 Patient left the ED. cm10 Signatures: Dispatcher [employer] EDMS Apolonia Medeiros RN RN aa5 Hansa Gonzáles RN RN hb [place], Ryan, MD MD rt Yue Farmer RN RN cm10 Iker Suazo Corrections: (The following items were deleted from the chart) 19:50 19:50 Reassessment: Patient appears in no apparent distress at this time. Patient cm10 and/or family updated on plan of care and expected duration. Pain level reassessed. Patient is alert, oriented x 3, equal unlabored respirations, skin warm/dry/pink. cm10
--- NOTE | 2025-01-28 17:10 | EDPHYS ---
Physician Documentation [facility] Name: Ashok Lopez Age: 79 yrs Sex: Male : 1945 Arrival Date: 01/28/2025 Time: 13:16 Bed 5 Private MD: ED Physician Barry Lambert HPI: 01/28 13:47 This 79 yrs old Male presents to ER via Wheelchair with complaints of Low blood rt pressure. 13:47 Patient presents to the ED with lightheadedness for 2 days, reports that his blood rt pressure today was in the 70s systolic, has improved after lying down. reports poor p.o. intake. Denies other symptoms, with acute complaints, symptoms are moderate in severity, no other aggravating or alleviating factors.. Historical: - Allergies: 13:26 NKA; aa5 - PMHx: 13:26 angina pectoris; Arthritis; CVA; High Cholesterol; Hypertension; Myocardial infarction; aa5 Prostate Cancer; Schizophrenia; Cancer (Unknown); - PSHx: 13:26 Nose reconstruction (Unknown); Carotid sx (Schizophrenia); aa5 - Immunization history:: Adult Immunizations unknown. - Infectious Disease History:: Denies. - Social history:: Smoking status: Patient reports the use of cigarette tobacco products. - Family history:: not pertinent. ROS: 13:47 Constitutional: Negative for fever, chills, and weight loss, Cardiovascular: Negative rt for chest pain, palpitations, and edema, Respiratory: Negative for shortness of breath, cough, wheezing, and pleuritic chest pain, Abdomen/GI: Negative for abdominal pain, nausea, vomiting, diarrhea, and constipation, Skin: Negative for injury, rash, and discoloration, Psych: Negative for depression, anxiety, suicide ideation, homicidal ideation, and hallucinations, 13:47 Neuro: Positive for near syncope, Negative for loss of consciousness, Exam: 13:47 Constitutional: This is a well developed, well nourished patient who is awake, alert, rt and in no acute distress. Head/Face: Normocephalic, atraumatic. Chest/axilla: Normal chest wall appearance and motion. Nontender with no deformity. No lesions are appreciated. Cardiovascular: Regular rate and rhythm with a normal S1 and S2. No gallops, murmurs, or rubs. Normal PMI, no JVD. No pulse deficits. Respiratory: Lungs have equal breath sounds bilaterally, clear to auscultation and percussion. No rales, rhonchi or wheezes noted. No increased work of breathing, no retractions or nasal flaring. Abdomen/GI: Soft, non-tender, with normal bowel sounds. No distension or tympany. No guarding or rebound. No evidence of tenderness throughout. Skin: Warm, dry with normal turgor. Normal color with no rashes, no lesions, and no evidence of cellulitis. MS/ Extremity: Pulses equal, no cyanosis. Neurovascular intact. Full, normal range of motion. 13:47 ENT: Dry mucous membranes. 13:47 ECG was reviewed by the Attending Physician. Vital Signs: 13:19 BP 104 / 50; Pulse 51; Resp 18 S; Temp 97.2(TE); Pulse Ox 98% on R/A; Weight 83.91 kg aa5 (R); Height 5 ft. 5 in. (R); 13:43 BP 133 / 54 Supine; Pulse 45; cm10 13:45 BP 105 / 50 Sitting; Pulse 46; cm10 13:47 BP 93 / 54 Standing; Pulse 48; cm10 14:14 BP 102 / 80; Pulse 45; Resp 16; Pulse Ox 96% ; cm10 14:30 BP 104 / 37; Pulse 41; Resp 15; Pulse Ox 95% ; cm10 15:00 BP 131 / 43; Pulse 41; Resp 15; Pulse Ox 96% ; cm10 15:30 BP 115 / 58; Pulse 40; Resp 15; Pulse Ox 95% ; cm10 16:00 BP 155 / 74; Pulse 41; Resp 15; Pulse Ox 96% ; cm10 17:00 BP 134 / 54; Pulse 48; Resp 14; Pulse Ox 96% ; cm10 18:00 BP 130 / 50; Pulse 43; cm10 19:00 BP 143 / 60; Pulse 45; Resp 13; Pulse Ox 96% on R/A; cm10 19:30 BP 145 / 60; Pulse 44; Resp 15; Pulse Ox 95% ; cm10 13:19 Body Mass Index 30.79 (83.91 kg, 165.1 cm) aa5 MDM: 13:31 Medical Screening Exam initiated rt 18:30 Differential Diagnosis Intravascular volume depletion, renal failure, electrolyte rt disturbance. Data reviewed: vital signs, nurses notes, lab test result(s), EKG, radiologic studies. Consideration of Admission/Observation Patient was admitted/placed on observation. Management of patient was discussed with the following: Hospitalist: Agrees to admit. Test considered but Not performed: CT: Dizziness due to hypotension, intravascular volume depletion in the low suspicion for central process, CT scan of the head is not indicated. Care significantly affected by the following chronic conditions: Hypertension. Counseling: I had a detailed discussion with the patient and/or guardian regarding the historical points, exam findings, and any diagnostic results supporting the discharge/admit diagnosis, lab results, radiology results, the need for further work-up and treatment in the hospital. Response to treatment: the patient's symptoms have mildly improved after treatment. 01/28 13:41 Order name: Basic Metabolic Panel; Complete Time: 15:05 rt 01/28 13:41 Order name: CBC with Diff; Complete Time: 14:01 rt 01/28 13:41 Order name: LFT's; Complete Time: 15:05 rt 01/28 13:41 Order name: Magnesium; Complete Time: 15:05 rt 01/28 13:41 Order name: Troponin HS; Complete Time: 15:05 rt 01/28 13:41 Order name: UAM; Complete Time: 15:49 rt 01/28 17:40 Order name: NT PRO-BNP EDMS 01/28 17:40 Order name: T4 Free EDMS 01/28 17:40 Order name: Thyroid Stimulating Hormone EDMS 01/28 17:40 Order name: Urinalysis w/ reflexes EDMS 01/28 17:40 Order name: CBC with Automated Diff EDMS 01/28 17:40 Order name: CBC with Automated Diff EDMS 01/28 17:40 Order name: CBC with Automated Diff EDMS 01/28 17:40 Order name: Comprehensive Metabolic Panel EDMS 01/28 17:40 Order name: Comprehensive Metabolic Panel EDMS 01/28 17:40 Order name: Comprehensive Metabolic Panel EDMS 01/28 17:40 Order name: Magnesium EDMS 01/28 17:40 Order name: Magnesium EDMS 01/28 17:40 Order name: Phosphorus EDMS 01/28 17:40 Order name: Phosphorus EDMS 01/28 17:42 Order name: UR SODIUM EDMS 01/28 17:45 Order name: Blood Culture EDMS 01/28 13:41 Order name: XRAY Chest (1 view); Complete Time: 15:05 rt 01/28 17:42 Order name: Renal Ultrasound-Complete; Complete Time: 19:10 EDUT 01/28 17:44 Order name: Urinary Bladder; Complete Time: 19:10 EDUT 01/28 13:41 Order name: EKG; Complete Time: 13:41 rt 01/28 17:42 Order name: CONS Physician Consult EDUT 01/28 13:41 Order name: Orthostatic Blood Pressure; Complete Time: 13:54 rt 01/28 13:41 Order name: Cardiac monitoring; Complete Time: 13:54 rt 01/28 13:41 Order name: EKG - Nurse/Tech; Complete Time: 13:54 rt 01/28 13:41 Order name: IV Saline Lock; Complete Time: 13:54 rt 01/28 13:41 Order name: Labs collected and sent; Complete Time: 13:54 rt 01/28 13:41 Order name: O2 Per Protocol; Complete Time: 13:54 rt 01/28 13:41 Order name: O2 Sat Monitoring; Complete Time: 13:54 rt EC:47 Rate is 47 beats/min. Rhythm is regular, Sinus bradycardia with No ectopy. QRS [place] is rt Normal. [place] interval is normal. QRS interval is normal. QT interval is normal. No Q waves. No ST changes noted. Interpreted by me. Administered Medications: 14:21 Drug: NS 0.9% IV 1000 ml IV at 1000 ml once; to be given as a bolus over 60 minutes cm10 Route: IV; Rate: 1000 ml; Site: left forearm; 15:21 Follow up: Response: No adverse reaction; IV Status: Completed infusion; IV Intake: cm10 1000ml Disposition Summary: 01/28/25 17:10 Hospitalization Ordered Notes: Hospitalization Status: Inpatient Admission rt Provider: Ashok Ayoub rt Location: Telemetry/MedSur (Inpatient) rt Condition: Stable rt Problem: new rt Symptoms: have improved rt Bed/Room Type: Standard rt Room Assignment: 224(01/28/25 18:07) ty Diagnosis - Orthostatic hypotension rt - Acute kidney injury rt Forms: - Medication Reconciliation Form rt - SBAR form rt - Leadership Thank You Letter rt Critical care time excluding procedures: 18:30 Critical care time: Bedside Care: 30 minutes, Consultation: 5 minutes. Total time: 35 rt minutes Signatures: Dispatcher [employer] EDMS Apolonia Medeiros, RN RN aa5 Barry Lambert MD MD rt Yue Farmer RN RN cm10 Iker Suazo ty Corrections: (The following items were deleted from the chart) 13:41 13:41 BASIC METABOLIC PANEL+C.LAB.BRZ ordered. EDMS EDMS 13:41 13:41 CBC+H.LAB.BRZ ordered. EDMS EDMS 13:41 13:41 HEPATIC FUNCTION+C.LAB.BRZ ordered. EDMS EDMS 13:41 13:41 MAGNESIUM+C.LAB.BRZ ordered. EDMS EDMS 13:41 13:41 Troponin High Sensitivity+C.LAB.BRZ ordered. EDMS EDMS 13:41 13:41 Urinalysis W/Microscopic+U.LAB.BRZ ordered. EDMS EDMS 17:42 17:42 CONS Physician Consult ordered. EDMS EDMS 18:07 17:10 rt ty
--- NOTE | 2025-01-28 17:49 | P.HP ---
Certification for Inpatient Patient admitted to: Observation With expected LOS: <2 Midnights Patient will require the following post-hospital care: None Practitioner: I am a practitioner with admitting privileges, knowledge of patient current condition, hospital course, and medical plan of care. Services: Services provided to patient in accordance with Admission requirements found in Title 42 Section 412.3 of the Code of Federal Regulations Patient History Date of Service: 01/28/25 Reason for admission: Hypotension History of Present Illness: Is a 79-year-old male with past medical history of bladder/prostate/skin cancer,, hypertension, high cholesterol,GERD, MA x 2 with 3 cardiac stents and loop recorder, and stroke with carotid grafting presents to the ED due to low blood pressure. Patient states that his took his blood pressure and initially it was 96/40 and then repeat was 76/40 so patient decided to come into the ED. Patient denies all other related symptoms at this time and states that he has been drinking much fluid recently. ED workup with chest x-ray that was unremarkable, positive orthostatics and creatinine 3.59. And being admitted for acute renal failure at this time. Allergies No Known Allergies Allergy (Verified 11/12/16 21:58) Home medications list reviewed: Yes Home Medications: lisinopriL [Lisinopril] 1 tab PO DAILY 11/12/16 Pantoprazole [Protonix Tab*] 40 mg PO DAILY #30 tab 11/13/16 Aspirin [[place] Aspirin] 81 mg PO DAILY 09/28/23 Clopidogrel Bisulfate [Plavix] 75 mg PO DAILY 09/28/23 - Past Medical/Surgical History Diabetic: No -: Hypertension -: Coronary artery disease -: History of prostate cancer -: Osteoarthritis -: Bladder cancer -: skin Cancer -: Myocardial infarction x 2 -: High Cholesterol -: Stroke -: Cholecystectomy -: Right bicep repair -: 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 He is retired. - Family History Mother -: Other (see notes) Brother -: Other (see notes) - Social History Smoking Status: Current every day smoker Counseled patient to stop smoking for: more than 10 minutes Smoking therapy provided: Yes Patient receptive to therapy: Yes Alcohol use: No CD- Drugs: No Caffeine use: Yes Place of Residence: Home Review of Systems 10-point ROS is otherwise unremarkable (Low BP at home, asymptomatic) Physical Examination - Physical Exam General: Alert, In no apparent distress HEENT: Atraumatic, PERRLA, Mucous membr. moist/pink, EOMI, Sclerae nonicteric Neck: Supple, 2+ carotid pulse no bruit, No LAD, Without JVD or thyroid abnormality Respiratory: Normal air movement, Diminished Cardiovascular: No edema, Other (Bradycardia (Normal is HR 40's) and loop recorder present ) Capillary refill: <2 Seconds Gastrointestinal: Normal bowel sounds, No tenderness Musculoskeletal: No tenderness Integumentary: No rashes Neurological: Normal gait, Normal speech, Normal strength at 5/5 x4 extr, Normal tone, Normal affect Lymphatics: No axilla or inguinal lymphadenopathy External genitalia: Deferred Rectal: Deferred - Studies Laboratory Data (last 24 hrs) 01/28/25 01/28/25 13:35 13:35 WBC 8.30 Hgb 16.2 Hct 45.5 Plt Count 170 Sodium 135 L Potassium 3.9 BUN 36 H Creatinine 3.59 H Glucose 121 H Magnesium 2.2 Total Bilirubin 1.8 H AST 14 L ALT 27 Alkaline Phosphatase 93 Assessment and Plan - Plan Acute Renal Failure -Creatinine 3.59, Na+135 -Most likely 2/2 dehydration -Monitor electrolytes and kidney function -NS @100mL/hr for now, monitor for overload -Bladder scan ordered -Urinalysis ordered -Consider nephrology consult if worsening Orthostatic Hypotension Hx of Hypertension -Hold home Lisinopril for now -Monitor BP per unit protocol -Consider echo if no improvement -Fall risk precautions -IV fluids -Consider cardiology consult if worsening Hx of Bradycardia -Patient reports loop recorder -Baseline HR 40s-50s -EKG with Sinus Bradycardia -Continuous telemetry History of Stroke History of HCL -Continue home Plavix/ASA/statin once verified GERD -Continue home Protonix once verified DVT Ppx: Home Plavix/ASA GI Ppx: Home Protonix Code Status: Full Code Discharge Plan: Home Plan to discharge in: 24 Hours - Advance Directives Does patient have a Living Will: Yes Does patient have a Durable POA for Healthcare: Yes - Code Status/Comfort Care Code Status Assessed: Yes (FULL CODE)
[2025-01-28] MEDS ORDERED: NA CHLORIDE 0.9% 1,000 ML IV SCH (18:00)
--- NOTE | 2025-01-28 18:59 | RAD REPORT ---
EXAMINATION: US RENAL ULTRASOUND CLINICAL INDICATION: Acute Renal failure TECHNIQUE: Real-time ultrasonography of the abdomen was performed. COMPARISON: No prior exam. FINDINGS: RIGHT KIDNEY: Right renal length measurement: 10.0 x 5.8 x 5.5 cm. Normal in echogenicity and size. N o calculus, solid mass or hydronephrosis. Small benign cyst. LEFT KIDNEY: Left renal length measurement: 10.7 x 6.4 x 5.3 cm. Normal in echogenicity and size. No calculus, solid mass or hydronephrosis. 3 cm cyst is present. URINARY BLADDER: Incompletely distended without gross abnormality detected. ADDITIONAL FINDINGS: None. IMPRESSION: Bilateral renal cysts, otherwise negative study.
--- NOTE | 2025-01-28 19:00 | RAD REPORT ---
EXAM: URINARY BLADDER ULTRASOUND COMPARISON: CLINICAL INDICATION: r/o retention TECHNIQUE: Multiplanar grayscale and color flow sonographic images were obtained through the pelvis for evaluation of the bladder.. FINDINGS: Normal bladder volume. The bladder wall shows no focal thickening, ureterocele or evidence of mass. No echogenic calculi. IMPRESSION: Unremarkable study..
[2025-01-28] MEDS: CEFTRIAXONE 1,000 MG in NA CHLORIDE 0.9% 50 ML IVPB SCH (20:36)
[2025-01-28] MEDS: NA CHLORIDE 0.9% 1,000 ML IV SCH (20:42)
[2025-01-28 22:36] LABS: Thyroid Stimulating Hormone 2.28 uIU/mL (0.358-3.740)
[2025-01-28 23:15] VITALS: O2SAT 96; BMI 30.7
[2025-01-29 05:44] LABS: Absolute Basophils 0.1 K/uL (0-0.5); Absolute Eosinophils 0.2 K/uL (0-0.5); Absolute Lymphocytes (CBC) 2.2 K/uL (0.7-4.9); Absolute Monocytes 0.5 K/uL (0.1-1.3); Absolute Neutrophil 4.2 K/uL (1.8-8.0); Basophils % 1.2 % (0-1.3); Eosinophils % 3.2 % (0-4.4); Hematocrit 41.3 % (39.6-49.0); Hemoglobin 14.4 g/dL (13.6-17.9); MCH 35.6 pg (27.0-35.0); MCV 101.8 fL (80-100); Monocytes % 7.5 % (3.3-12.3); Neutrophils % 58.1 % (41.7-73.7); Nucleated Red Blood Cells % 0.2 % (0-0); Platelets 167 thou/uL (152-406); RBC Red Blood Cell Count 4.06 M/uL (4.33-5.43); Red Cell Distribution Width 13.4 % (12.1-15.2)
[2025-01-29 07:37] LABS: Albumin 3.2 g/dL (3.4-5.0); Albumin/Globulin Ratio 0.9 (1.1-1.8); Anion Gap 8.2 mEq/L (5.0-15.0); Bilirubin Total 0.9 mg/dL (0.2-1.0); Globulin 3.5 g/dL (2.3-3.5); Magnesium 2.3 mg/dL (1.6-2.4); Phosphorus 3.2 mg/dL (2.5-4.9); Potassium 4.2 mEq/L (3.5-5.1); Protein, Total 6.7 g/dL (6.4-8.2)
[2025-01-29] MEDS: AMLODIPINE 5 MG TAB PO SCH (10:30)
--- NOTE | 2025-01-29 10:49 | P.PN ---
Subjective Date of Service: 01/29/25 Chief Complaint: Acute renal failure Subjective: Improving (Patient is improving doing well renal function is improving) Review of Systems Unremarkable Physical Examination - Vital Signs Temperature: 97.9 F Blood Pressure: 177/76 Pulse: 43 Respirations: 16 Pulse Ox (%): 93 - Physical Exam General: Alert, In no apparent distress, Oriented x3 Respiratory: Clear to auscultation bilaterally Cardiovascular: No edema Gastrointestinal: Normal bowel sounds, Soft and benign - Studies Laboratory Data (last 24 hrs) 01/28/25 01/28/25 13:35 13:35 WBC 8.30 Hgb 16.2 Hct 45.5 Plt Count 170 Sodium 135 L Potassium 3.9 BUN 36 H Creatinine 3.59 H Glucose 121 H Magnesium 2.2 Total Bilirubin 1.8 H AST 14 L ALT 27 Alkaline Phosphatase 93 Assessment And Plan - Current Problems (Diagnosis) (1) Renal insufficiency Current Visit: No Status: Acute Plan: Patient is 79 years of age admitted with acute on chronic renal insufficiency may be precipitated by PEYTON inhibitor so far no evidence of sepsis ultrasound of the kidney shows some cystic disease renal consult pending up changing over to amlodipine continue with IV fluids doubt urinary tract infection continue with present treatment possible discharge tomorrow discussed with the daughter who is a registered nurse patient to avoid PEYTON inhibitors in the future
[2025-01-29] MEDS: NA CHLORIDE 0.9% 1,000 ML IV SCH (12:40)
[2025-01-29] MEDS: HYDRALAZINE HCL 20 MG/ML VIAL IV PRN (13:24)
--- NOTE | 2025-01-29 13:24 | P.CNS ---
Date of Consult: 01/29/25 Reason for Consult: CATRACHITO Requesting Physician: Ashok Ayoub Chief Complaint: Acute renal failure History of Present Illness: Pt is a 79-year-old male with past medical history of CAD s/p multiple PCI/stenting, chronic loop recorder, chronic reported resting bradycardia, a hx of prior ischemic CVA withou residual deficits reported, a hx of Rt CEA, who reports some weakness, lightheadedness and low BP for a day or two prior to presentation to ER where initial SBP was in the 100s. He is on max dose Lisinopril at home, which he has taken chronically. He denies any N/V/D. He feels better post hydration, he has been urinating well, urine appears visibly clear in the urinal next to bedside. BP has trended up this AM. No CP or dyspnea. 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 He is retired. - Family History Mother Medical History: Other (see notes) Brother Medical History: Other (see notes) - Social History Smoking Status: Current some day smoker Alcohol use: No CD- Drugs: No Caffeine use: Yes Place of Residence: Home Review of Systems General: Weakness Eyes: Unremarkable ENT: Unremarkable Respiratory: Unremarkable Cardiovascular: As per HPI Gastrointestinal: Unremarkable Genitourinary: Other (Abnormal UA on admission, hx of bladder CA s/p TURBT ) Musculoskeletal: Unremarkable Integumentary: Unremarkable Neurological: As per HPI Physical Examination Temp Pulse Resp BP Pulse Ox 97.3 F 44 L 16 196/82 H 98 01/29/25 12:00 01/29/25 12:00 01/29/25 12:00 01/29/25 12:00 01/29/25 12:00 General: Alert, In no apparent distress, Cooperative HEENT: Atraumatic, Normocephalic Neck: Supple Respiratory: Clear to auscultation bilaterally, Normal air movement Cardiovascular: No edema, Other (Dipesh, regular, distant heart sounds) Gastrointestinal: Soft and benign, Non-distended, No tenderness Musculoskeletal: No swelling, No contractures Integumentary: No rashes Neurological: Normal speech, Normal tone, Normal affect Laboratory Data (last 24 hrs) 01/28/25 01/28/25 13:35 13:35 WBC 8.30 Hgb 16.2 Hct 45.5 Plt Count 170 Sodium 135 L Potassium 3.9 BUN 36 H Creatinine 3.59 H Glucose 121 H Magnesium 2.2 Total Bilirubin 1.8 H AST 14 L ALT 27 Alkaline Phosphatase 93 Conclusions/Impression: A/P) 1. Stage II CATRACHITO 2nd to functional CATRACHITO episode with volume depletion, relative hypotension, concurrent max dose ACEi with renal function quickly recovering with BP normalization and hydration. 2. Will stop IVF early on as pt now quite hypertensive 3. Abnormal findings in urine, other. UA on admission with hyaline casts, concentrated, some WBCs in that setting but unclear if truly c/w cystitis but primary team has started Abx empirically, complete short 3 day course 4. Hypotension 2nd to hypovolemia resolved. Underlying chronic HTN with now accelerated HTN post hydration. Agree with CCB initiation. Will order PRN IV Hydralazine. Can resume ACEi at lower dose by tmrw 5. Bradycardia unspecified -cont tele monitoring, defer to IM to manage/review with Cardiology as indicated
[2025-01-29] MEDS: lisinopriL 10 MG TAB PO SCH (20:52)
[2025-01-29] MEDS ORDERED: lisinopriL 10 MG TAB PO SCH (21:00)
[2025-01-30 05:47] LABS: Absolute Eosinophils 0.2 K/uL (0-0.5); Absolute Lymphocytes (CBC) 1.9 K/uL (0.7-4.9); Absolute Monocytes 0.8 K/uL (0.1-1.3); Absolute Neutrophil 4.2 K/uL (1.8-8.0); Basophils % 0.6 % (0-1.3); Eosinophils % 2.6 % (0-4.4); Hematocrit 39.6 % (39.6-49.0); Hemoglobin 13.9 g/dL (13.6-17.9); Lymphocytes % 26.7 % (15.3-44.8); MCH 35.6 pg (27.0-35.0); MCV 101.6 fL (80-100); MPV 8.7 fL (7.6-11.3); Monocytes % 10.9 % (3.3-12.3); Neutrophils % 59.2 % (41.7-73.7); Platelets 157 thou/uL (152-406); Red Cell Distribution Width 13.1 % (12.1-15.2)
[2025-01-30 05:50] LABS: Albumin 3.2 g/dL (3.4-5.0); Albumin/Globulin Ratio 0.9 (1.1-1.8); Anion Gap 8.4 mEq/L (5.0-15.0); Bilirubin Total 1.2 mg/dL (0.2-1.0); Globulin 3.6 g/dL (2.3-3.5); Potassium 4.4 mEq/L (3.5-5.1); Protein, Total 6.8 g/dL (6.4-8.2)
[2025-01-30] MEDS: PANTOPRAZOLE 40MG TABLET PO SCH (05:57)
[2025-01-30] MEDS: ASPIRIN 81 MG CHEWABLE TABLET PO SCH (08:11)
[2025-01-30] MEDS: CLOPIDOGREL 75 MG TABLET PO SCH (08:12)
[2025-01-30 16:47] VITALS: BP 145/67; TEMP 97.6
--- NOTE | 2025-01-30 22:01 | P.PN ---
Date of Service: 01/30/25 Vital Signs Temp Pulse Resp BP Pulse Ox 97.6 F 59 16 145/67 H 97 01/30/25 16:00 01/30/25 16:00 01/30/25 16:00 01/30/25 16:00 01/30/25 16:00 Assessment/ Plan: Nephrology No dyspnea No chest pain +PO +UO +BM No acute events overnight Vitals, medications, blood work and imaging reviewed in the chart NAD. MMM. NCAT. Normal Respiratory Effort. S1S2. ND Abd. No C/C/E. No rash. AAO. Normal speech. [id number] EXAMINATION: US RENAL ULTRASOUND CLINICAL INDICATION: Acute Renal failure TECHNIQUE: Real-time ultrasonography of the abdomen was performed. COMPARISON: No prior exam. FINDINGS: RIGHT KIDNEY: Right renal length measurement: 10.0 x 5.8 x 5.5 cm. Normal in echogenicity and size. No calculus, solid mass or hydronephrosis. Small benign cyst. LEFT KIDNEY: Left renal length measurement: 10.7 x 6.4 x 5.3 cm. Normal in echogenicity and size. No calculus, solid mass or hydronephrosis. 3 cm cyst is present. URINARY BLADDER: Incompletely distended without gross abnormality detected. ADDITIONAL FINDINGS: None. IMPRESSION: Bilateral renal cysts, otherwise negative study. EXAM: URINARY BLADDER ULTRASOUND COMPARISON: CLINICAL INDICATION: r/o retention TECHNIQUE: Multiplanar grayscale and color flow sonographic images were obtained through the pelvis for evaluation of the bladder.. FINDINGS: Normal bladder volume. The bladder wall shows no focal thickening, ureterocele or evidence of mass. No echogenic calculi. IMPRESSION: Unremarkable study.. Stage II CATRACHITO likely due to hypovolemia/ hypotension CKD III with Proteinuria -No NSAIDs BL Renal Cysts -No further imaging at this time Hyponatremia -Encourage nutrition HTN with CKD Recent hypotension resolved -Continue Amlodipine and Lisinopril Hospitalist note reviewed
== END 2025-01-30 17:00 | disposition home or self-care (01) | DRG 683 ==
LOC: ER 13:16 → OBSVTOIN 17:35 → ERHOLD 17:35 → 2ND 19:37
PROVIDERS: ADMIT Internal Medicine Sleep Medicine; ATTEND Hospitalist
DX: N17.9 Acute kidney failure, unspecified (principal); E87.1 Hypo-osmolality and hyponatremia; Z86.73 Personal history of transient ischemic attack (TIA), and cerebral infarction without residual deficits; I25.2 Old myocardial infarction; I10 Essential (primary) hypertension; Z85.46 Personal history of malignant neoplasm of prostate; F20.9 Schizophrenia, unspecified; I25.10 Atherosclerotic heart disease of native coronary artery without angina pectoris; Z95.5 Presence of coronary angioplasty implant and graft; I12.9 Hypertensive chronic kidney disease with stage 1 through stage 4 chronic kidney disease, or unspecified chronic kidney disease; N18.30 Chronic kidney disease, stage 3 unspecified
CPT/HCPCS: 36415; 71045; 76770; 76857; 80048; 80053; 80076; 81001; 83735; 83880; 84100; 84300; 84439; 84443; 84484; 85025; 87040; 93005; 96360; 99285; J0360; J0696; J7030